=== PATIENT | male | born 1940 | race Caucasian/White ===

== ENCOUNTER → 2016-04-25 | Outpatient (CLI) | payer OTHER ==
--- NOTE | 2016-04-25 12:00 | EKG ---
[address] [address] Measurements Intervals [place] Rate: 89 P: 62 MA: 148 QRS: 137 QRSD: 95 T: 43 QT: 379 QTc: 426 Interpretive Statements SINUS RHYTHM WITH OCCASIONAL VENTRICULAR PREMATURE COMPLEXES LEFT ATRIAL ENLARGEMENT RIGHT AXIX DEVIATION PATTERN CONSISTENT WITH PULMONARY DISEASE POSSIBLE RIGHT VENTRICULAR HYPERTROPHY No previous ECG available for comparison Electronically Signed On 04-25-16 12:24:37 [facility] by Bebo Schumacher [email or web address]
--- NOTE | 2016-04-25 12:08 | DI ---
PA /LATERAL CHEST X-RAY, 04/25/2016 11:39 AM : Clinical History: Bronchitis. COPD. Previous Exam: 11/24/2014. There is no acute soft tissue or bony abnormality. The patient is status post CABG. There is cardiome lino with CHF. There is no acute infiltrate or effusion. There is blunting of the left costophrenic a ngle probably secondary to scarring. There are no pulmonary nodules. Readin. Cardiomegaly with CHF. 2. There is no acute infiltrate or effusion. There is chronic blunting of the left costophrenic angl e.
[2016-04-25 12:09] LABS: BASOPHILS # (AUTO) 0.02 10*3/UL; BASOPHILS % (AUTO) 0.2 % (0-1); EOSINOPHILS % (AUTO) 8.4 % (0-8); HEMATOCRIT 51.5 % (42.0-52.0); HEMOGLOBIN 16.4 g/dL (14.0-18.0); IMM GRAN % (AUTO) 0 % (0-5); IMM GRAN# (AUTO) 0 10*3/UL; LYMPHOCYTES # (AUTO) 1.37 10*3/uL; LYMPHOCYTES % (AUTO) 15.9 % (10-50); MEAN CORPUSCULAR HEMOGLOBIN 28.1 PG (27-31); MEAN CORPUSCULAR HGB CONC 31.8 g/dL (33-37); MEAN PLATELET VOLUME 10.4 FL (7.4-12.2); MONOCYTES # (AUTO) 0.91 10*3/UL (0.3-0.8); MONOCYTES % (AUTO) 10.6 % (5-15); NEUTROPHILS % (AUTO) 64.9 % (50-80); RDW COEFFICIENT OF VARIATION 17.9 % (11.5-14.5); RED BLOOD COUNT 5.83 10^6/uL (4.70-6.10); WHITE BLOOD COUNT 8.62 10^3/uL (4.8-10.8)
[2016-04-25 12:28] LABS: PLATELET MORPHOLOGY COMMENT NORMAL MORPHOLOGY (NORM)
[2016-04-25 12:30] LABS: BILIRUBIN,TOTAL 1.4 mg/dL (0.3-1.2); BUN/CREATININE RATIO 26.66 (6-20); CALCIUM 8.6 mg/dL (8.7-10.7); CREATININE 0.9 mg/dL (0.70-1.50); LDL CHOLESTEROL,CALCULATED 28.6 mg/dL; TOTAL PROTEIN 6.6 g/dL (6.1-8.0)
== END ==
LOC: EKG 11:24
PROVIDERS: ATTEND Obstetrics & Gynecology Gynecology
DX: J40 Bronchitis, not specified as acute or chronic (principal); J44.9 Chronic obstructive pulmonary disease, unspecified; I49.9 Cardiac arrhythmia, unspecified; I50.9 Heart failure, unspecified; I51.7 Cardiomegaly; Z12.5 Encounter for screening for malignant neoplasm of prostate
CPT/HCPCS: 36415; 71020; 80053; 80061; 85025; 93005; 93010; G0103

== ENCOUNTER → 2016-10-15 | Outpatient (CLI) | payer OTHER ==
[2016-10-15 08:59] LABS: HEMATOCRIT 52.9 % (42.0-52.0); HEMOGLOBIN 17.9 g/dL (14.0-18.0); MEAN CORPUSCULAR HEMOGLOBIN 30.3 PG (27-31); MEAN CORPUSCULAR HGB CONC 33.8 g/dL (33-37); MEAN CORPUSCULAR VOLUME 89.5 FL (80-90); MEAN PLATELET VOLUME 10.6 FL (7.4-12.2); RED BLOOD COUNT 5.91 10^6/uL (4.70-6.10)
[2016-10-15 09:29] LABS: CALCIUM 9.3 mg/dL (8.7-10.7); CHOL/HDL RATIO 3.1 RATIO (0-4.0); LDL CHOLESTEROL,CALCULATED 64.4 mg/dL; SERUM ALBUMIN 4.3 g/dL (3.5-4.8)
== END ==
LOC: LAB 07:55
PROVIDERS: ATTEND Obstetrics & Gynecology Gynecology
DX: I50.9 Heart failure, unspecified (principal); I25.10 Atherosclerotic heart disease of native coronary artery without angina pectoris; M54.5 Low back pain; L40.9 Psoriasis, unspecified; Z12.5 Encounter for screening for malignant neoplasm of prostate
CPT/HCPCS: 36415; 80053; 80061; 84443; 85027; G0103; 84153

== ENCOUNTER 2017-04-29 17:57 | Inpatient (IN) ==
[2017-04-29] MEDS ORDERED: IPRATROPIUM/ALBUTEROL SULFATE 3 ML NEB NEB ONE (18:27)
[2017-04-29] MEDS ORDERED: Sodium Chloride 0.9% 1,000 ML ONE (18:37)
[2017-04-29 19:02] LABS: VENOUS PH 7.39 (7.32-7.42)
[2017-04-29] MEDS ORDERED: ACETAMINOPHEN 500 MG TABLET PO ONE (19:25)
--- NOTE | 2017-04-29 20:33 | DI ---
CT CTA Chest Non-Coronary O,04/29/2017 7:10 PM: Clinical History: Dyspnea and elevated d-dimer. Previous Exam: None at this facility. Findings: Multiple helically acquired CT images are obtained through the chest following intravenous administra tion of contrast, and demonstrate multiple coronary artery calcifications. There is a hiatal hernia. 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 A few small lymph nodes are noted which are to small to characterize. There is subsegmental atelectasis in both lung bases worse on the left than the right. Calcified gran ulomas are noted. There are right lateral rib fractures involving the fifth, sixth, seventh and eighth ribs. Impression: 1. No evidence of pulmonary embolism. 2. Cardiomegaly and coronary artery disease. 3. Hiatal hernia. 4. Airspace disease within the lung bases worse on the left and right. This could represent an early pneumonia.
[2017-04-29] MEDS ORDERED: cefTRIAXone Inj 1 GM in Sodium Chloride 0.9% 100 ML IV ONE (20:47)
--- NOTE | 2017-04-29 21:20 | PDOC ---
HPI - History of Present Illness Date of Service: 04/29/17 Time of Service: 22:00 Chief Complaint: Cough, weakness of 2 days' duration History of Present Illness: This is a 77 years old male with medical history significant for history of coronary artery disease with previous bypass about 4-5 years ago, hypertension, psoriasis and hypercholesterolemia who presented to the urgent care clinic with a history of cough that started Saturday sounded like more dry cough. He is denying shortness of breath. He said he just felt weak and did not do much on Saturday. His appetite is decreased. He did not eat much. He somewhat poor historian. He denied chest pain. He came into the urgent care clinic had test they suspected pneumonia and he was sent to the ER. Evaluation in the ER suggested early pneumonia on the CT. In addition his white count was elevated. A blood culture was taken and he was started on antibiotic and was admitted. He said he feels better compared to when he came in. His sats also when he came in were low in the 77 he was put on 5 L of oxygen. He said he is not on oxygen at home. Past Medical History Medical History: 1. History of crying artery disease with previous bypass for 5 years ago. 2. History of congestive heart failure unknown type. 3. Psoriasis. 4. History of gout Surgical History: 1. Bypass surgery for 5 years ago Family History: Reviewed an Not Pertinent Past Social History: Doesn't smoke, doesn't drink no drugs. [place] himself. Tobacco Use: Never Smoker In the Past 12 Months, Have Used or Abuse Any of the Following Substance: None Alcohol Use: None Medication / Allergies Home Medications: Home Medications 3 Medication Instructions Recorded Confirmed Type Cholecalciferol (Vitamin D3) 1 cap PO PRN PRN cap 11/19/14 04/29/17 History [Vitamin D3] Esomeprazole Magnesium [Nexium] 20 mg PO DAILY cap 11/19/14 04/29/17 History Pitavastatin Calcium [Livalo] 4 mg PO DAILY tab 11/19/14 04/29/17 History RX: Allopurinol 1 tab PO DAILY tab 11/19/14 04/29/17 History RX: Amiodarone HCl 200 mg PO DAILY tab 11/19/14 04/29/17 History RX: Aspirin 81 mg PO DAILY tab 11/19/14 04/29/17 History RX: Carvedilol 1 tab PO BID tab 11/19/14 04/29/17 History RX: Furosemide 2 tab PO DAILY tab 11/19/14 04/29/17 History RX: Niacin 500 mg PO DAILY cap 11/19/14 04/29/17 History RX: Potassium Chloride 1 tab PO DAILY tab 11/19/14 04/29/17 History Spironolactone [Aldactone Tab] 1 tab PO BID tab 11/19/14 04/29/17 History Allergies/Adverse Reactions: Allergies 3 Allergy/AdvReac Type Severity Reaction Status Date / Time No Known Allergies Allergy Verified 04/29/17 17:59 Review of Systems - Review of Systems All Systems: Reviewed & No Additional Complaints Except as Stated Exam - General General Appearance: No Acute Distress, Cooperative, Obese - Head Head Exam: Normal Inspection, Atraumatic - Eye Eye Exam: POSITIVE: Normal Appearance - ENT ENT Exam: POSITIVE: Normal Exam - Neck Neck Exam: Normal Inspection - Respiratory Additional Respiratory Exam Details: Decreased air entry with crackles with occasional wheeze at the bases. - Cardiovascular Cardiovascular Exam: POSITIVE: RRR - GI/Abdominal GI/Abdominal Exam: POSITIVE: Normal Bowel Sounds, Non Tender, Non Distended, Soft, No Organomegaly - Rectal Rectal Exam: POSITIVE: Deferred - External Exam: POSITIVE: Deferred - Extremities Extremities Exam: POSITIVE: Normal Inspection - Back Additional Back Exam Details: Sizes noted on his back. Throat is also noted on his chest. - Psychiatric Psychiatric Exam: POSITIVE: Normal Affect Results - Labs Additional Lab Results: White count is 18.25, platelet 179, hemoglobin 17.8, neutrophils 82.5%, chemistry were normal except bilirubin of 1.9, blood glucose 123, troponin was 0.035, BNP was 2700, CRP was 4.1. D-dimer was 0.6.3 - EKG Data -: EKG Interpreted by Me Rate: Tachycardia EKG Shows Normal: Sinus Rhythm - EKG Data Additional EKG Details: EKG showed sinus tachycardia with incomplete right bundle - Imaging Status: Report Reviewed by Me (CT chest 1. No evidence of pulmonary embolism. 2. Cardiomegaly and coronary artery disease. 3. Hiatal hernia. 4. Airspace disease within the lung bases worse on the left and right. This could represent an early pneumonia. Chest X ray Cardiomegaly and increased interstitial markings most consistent with congestive heart failure unchanged from the prior exam.) Assessment and Plan - Patient Problems (1) Pneumonia Current Visit: Yes Status: Acute Comment: With his elevated white count and the low-grade fever that he had down in the ER will treat him as pneumonia. He was giving antibiotics will continue with Rocephin and zithromax. Continue with breathing treatment. Code(s): J18.9 - Pneumonia, unspecified organism (2) Hypertension Current Visit: Yes Status: Acute Comment: We'll continue with his previous medications. Code(s): I10 - Essential (primary) hypertension (3) History of congestive heart failure Current Visit: Yes Status: Acute Comment: His BNP is elevated I think his symptoms are more secondary to pneumonia. I do think that he needs some fluid will give some fluid and will be cautious with it will repeat his labs in a.m. We'll think about restarting his Lasix tomorrow or the day after. Does not look like he takes his Lasix regularly. Code(s): Z86.79 - Personal history of other diseases of the circulatory system (4) History of gout Current Visit: Yes Status: Acute Comment: Continue allopurinol Code(s): Z87.39 - Personal history of other diseases of the musculoskeletal system and connective tissue
[2017-04-29] MEDS ORDERED: LIDOCAINE W/ SODIUM BICARB 0.5 ML SYR SUBD PRN (22:08)
[2017-04-29] MEDS ORDERED: Sodium Chloride 0.9% 1,000 ML IV SCH (22:30)
--- NOTE | 2017-04-29 22:37 | PDOC ---
General Adult HPI - General Chief Complaint: Respiratory Complaint Stated Complaint: COUGH AND FEVER Date Seen by Provider: 04/29/17 Time Seen by Provider: 16:15 Source: POSITIVE: Patient Exam Limitations: POSITIVE: No limitations Nurse's Notes Reviewed & Considered: Yes - History of Present Illness Initial Comment: The patient is a 77-year-old male. He reports a 2-3 day history of cough and shortness of breath and fever. Patient was initially seen at the medical office building where he was noted to have an oxygen saturation of 74% on room air; he is not on oxygen at home. He had a fever of 100.1. White blood cell count was 18,250 with 82% neutrophils. Complete metabolic panel was normal CRP 4.1, BNP 27 and troponin was .035. Chest x-ray done in the clinic was reported by radiologist to show some interstitial infiltrates compatible with congestive heart failure. Patient was referred to the emergency room for further evaluation. Patient denies any chest pain. He had as have a cough productive of mucoid "phlegm". Have you received a tetanus shot in the past 10 years?: Unknown Body Location Affected: REPORTS: Chest Timing: REPORTS: Constant, Getting Worse Duration: >24 hours (2-3 days) Severity: Moderate Quality: REPORTS: Other (Patient denies any chest or) Context: DENIES: None, Sitting, Standing, Activity, Emotional stress, Coughing, Recent Trauma, Recent Surgery, Sleep, Rest, Lifting, Turning, Bending, Fall, Near Fall, Other Modifying Factors: improves with: Coughing Similar Symptoms Previously: No Recent Care Received: REPORTS: Recently Seen, Treated by MD (Seen earlier today in the clinic.) Any Prior Injuries Related to Current Complaint?: No - Patient Home Medications Home Medications: Home Medications Allopurinol 1 tab PO DAILY tab 11/19/14 Amiodarone HCl 200 mg PO DAILY tab 11/19/14 Aspirin 81 mg PO DAILY tab 11/19/14 Carvedilol 1 tab PO BID tab 11/19/14 Cholecalciferol (Vitamin D3) [Vitamin D3] 1 cap PO PRN PRN cap 11/19/14 Esomeprazole Magnesium [Nexium] 20 mg PO DAILY cap 11/19/14 Furosemide 2 tab PO DAILY tab 11/19/14 Niacin 500 mg PO DAILY cap 11/19/14 Pitavastatin Calcium [Livalo] 4 mg PO DAILY tab 11/19/14 Potassium Chloride 1 tab PO DAILY tab 11/19/14 Spironolactone [Aldactone Tab] 1 tab PO BID tab 11/19/14 - Patient Allergies Allergies/Adverse Reactions: Allergies 3 Allergy/AdvReac Type Severity Reaction Status Date / Time No Known Allergies Allergy Verified 04/29/17 17:59 Past Medical History - heen HEENT History: Denies History Cardiovascular History: Previous GA, Other (please comment) Additional Cardiovasular History: STENTS X 5 5 YEARS AGO Respiratory History: Denies History Gastrointestinal History: Denies History Genitourinary History: Denies History Endocrine History: Denies History Musculoskeletal History: Back Pain Neurological History: Denies History Blood Disorders: Denies History Psychiatric History: Denies History History of Sexually Transmitted Diseases: No Male Reproductive History: Denies History Cancer History: Denies History In Past Year Been Physically Harmed or Verbally Threatened: No History of MDRO: Yes Type of MDRO: MRSA History of Other Communicable Diseases: No Tobacco Use: Never Smoker In the Past 12 Months, Have Used or Abuse Any Substance: None Previous Surgical History: Yes Type / Date of Surgery: LUMBAR FUSION X 2 3 YEARS AGO. CARDIAC STENTS X 5 Significant Family History: No pertinent family hx Past Medical History Reviewed: Reviewed - No Changes ROS - Limitations ROS Limitations: No Limitations Constitution: REPORTS: Chills, Fever Cardiovascular: REPORTS: Denies Cardiac Symptoms Respiratory: REPORTS: Cough Productive, Shortness Of Breath Neurological: REPORTS: Denies Neuro Symptoms Gastrointestinal: REPORTS: Denies GI Symptoms Endocrine: REPORTS: Denies Symptoms Musculoskeletal: REPORTS: Denies MS Symptoms Genitourinary: REPORTS: Denies Symptoms Eyes: REPORTS: Denies Symptoms ENT: REPORTS: Denies Symptoms Skin: REPORTS: Denies Skin Symptoms Lympathic: REPORTS: Denies Lympathic Symptoms Immunologic: POSITIVE: Denies Symptoms Psychiatric: POSITIVE: Denies Psych Symptoms General Adult Exam - General Appearance General Appearance: POSITIVE: Alert, Cooperative, No Acute Distress, No Evidence of Trauma - HEENT HEENT: POSITIVE: Head Inspection Nml, Eyes Inspection Nml, Ears Inspection Nml, Nose Inspection Nml, Oral/Dental Inspect. Nml, Pharynx Inspect. Nml, PERRL, EOMI - Pupils Pupil Size: 3 mm: Bilateral (PERRLA) - Neck Neck: POSITIVE: Normal Inspection, Thyroid Normal - Respiratory Respiratory: POSITIVE: Rales, Rhonchi (Rales and rhonchi in both lower lungs. Right greater than left). NEGATIVE: Breath Sounds Normal - Cardiovascular Cardiovascular: POSITIVE: Regular Rate & Rhythm, No Murmur, No Gallop, PMI Normal, Tachycardia (Sinus tachycardia of 128) Peripheral Pulses: Radial (R): 2+, Radial (L): 2+ - Abdomen Abdomen: Soft: (All Quadrants), Normal Bowel Sounds: (All Quadrants), Denies Tenderness: (All Quadrants), No Splenomegaly: (All Quadrants), No Hepatomegaly: (All Quadrants), No Guarding: (All Quadrants), No Rebound: (All Quadrants), No Palpable Pulse: (All Quadrants), No Palpabale Mass: (All Quadrants), No Distention: (All Quadrants), No Rigidity: (All Quadrants) - Back Back: POSITIVE: Normal Inspection - Skin Skin: POSITIVE: Normal Color, Warm, Dry, No Rash - Extremities Extremity: Non-Tender: (All Extremities), Normal ROM: (All Extremities), Normal Inspection: (All Extremities) - Neurological / Psychological Neurological: POSITIVE: Affect Apporpriate, Oriented X3, plastic installer Normal As Tested, Motor Normal, Sensation Normal General Adult Progress - Results Reviewed by me Xrays/CTs/US Reviewed by me: Yes Discussed with Radiologist: Yes Radiology Findings: CTA chest shows airspace disease in both lung bases compatible with early pneumonia. Chest x-ray shows some interstitial infiltrates, read by radiologist as being compatible with congestive heart failure Lab Results Reviewed by Me: Yes (see above; d-dimer mildly elevated. Blood cultures drawn.) EKG Interpreted/Reviewed By Me:: Yes (sinus tachycardia 105; otherwise normal) EKG Interpretation:: POSITIVE: Normal Intervals, Normal [place], Normal QRS, Normal ST/T. NEGATIVE: Normal Sinus Rhythm (Sinus tachycardia), Normal Rate ( Sinus tachycardia) - Patient's Progress Pain Medication Addressed: POSITIVE: Not Applicable School/Work Release Addressed: POSITIVE: Not Applicable Re-Examine Time: 19:35 Re-Examine Comment: 1 g of Rocephin IV and 500 mg of Zithromax IV ordered after blood cultures obtained. Oxygen saturation was maintained around 93% on 5 L of oxygen by nasal cannula. Influenza test negative. Status: POSITIVE: Improved (Patient feels better with oxygen supplementation. Patient admitted by Dr. Puentes for further evaluation and treatment.), Re- Examined Antibiotics Given: Yes (Rocephin 1 g IV and Zithromax 500 mg IV) Quality Measure Initiative: CAP: POSITIVE: SaO2, Antibiotic(s), BC, CXR or CT - Consult Consult (If Yes, Name of Consulting MD & Time Called): Yes (Dr. Puentes, [id number], hospitalist) Consulting MD will see pt:: [facility] Admit Counseled: POSITIVE: Patient, Family, RE: Lab Results, RE: Radiology Results, RE : DX, RE: Need for F/U Patient Care Time - Estimated PCT Patient Care Time (In Minutes): 60 Vital Signs - Recent Vital Signs Vital Signs: Vital Signs (Last 8 hours) Temp Pulse Pulse Resp BP BP Pulse Ox 04/29/17 22:25 92 04/29/17 21:47 98.5 F 90 28 H 108/78 91 04/29/17 19:33 100.3 F H 04/29/17 18:52 107 H 24 94 04/29/17 18:51 105 H 22 86 04/29/17 18:10 100.1 F H 128 H 26 H 146/108 74 - VS Reviewed Vital Signs Reviewed: Yes Discharge Clinical Impression: Pneumonia, Congestive heart failure Discharge Disposition: Admit to Inpatient Condition: Good Date Decision to Admit to Inpatient: 04/29/17 Time Decision to Admit to Inpatient: 20:00
[2017-04-29] MEDS ORDERED: GUAIFENESIN/DM 5 ML UD CUP PO PRN (23:11)
[2017-04-30 05:00] LABS: BASOPHILS # (AUTO) 0.01 10*3/UL; BASOPHILS % (AUTO) 0.1 % (0-1); EOSINOPHILS # (AUTO) 0.01 10*3/UL; EOSINOPHILS % (AUTO) 0.1 % (0-8); Hematocrit [HCT] 48.8 % (42.0-52.0); Hemoglobin [HGB] 16.4 g/dL (14.0-18.0); LYMPHOCYTES # (AUTO) 0.96 10*3/uL; MEAN CORPUSCULAR HEMOGLOBIN 31.1 PG (27-31); MEAN CORPUSCULAR HGB CONC 33.6 g/dL (33-37); MEAN CORPUSCULAR VOLUME 92.6 FL (80-90); MONOCYTES # (AUTO) 1.31 10*3/UL (0.3-0.8); MONOCYTES % (AUTO) 7.4 % (5-15); NEUTROPHILS # (AUTO) 15.35 10*3/UL; NEUTROPHILS % (AUTO) 86.8 % (50-80); RED BLOOD COUNT 5.27 10^6/uL (4.70-6.10)
[2017-04-30 05:09] LABS: BLOOD UREA NITROGEN 17 mg/dL (7-22); BUN/CREATININE RATIO 24.28 (6-20)
[2017-04-30 05:15] LABS: PLATELET MORPHOLOGY COMMENT NORMAL MORPHOLOGY (NORM); RBC MORPHOLOGY COMMENT NORMAL MORPHOLOGY (NORM); WBC MORPHOLOGY COMMENT NORMAL MORPHOLOGY (NORM)
[2017-04-30] MEDS: LEVALBUTEROL HCL 0.63 MG/3 ML NEB PRN (07:03)
--- NOTE | 2017-04-30 08:06 | PDOC(PROG) ---
Date and Time of Service: 04/30/2017 8:06 AM Interval History: Subjective He said he feels somewhat better compared to last night. The cough seems to be less but still there. He is denying shortness of breath. He still on oxygen though. He said he did manage to sleep. Objective : Data - Labs CBC and BMP: 04/30/17 04:35 04/30/17 04:35 Objective : Exam - General General Appearance: No Acute Distress, Cooperative, Obese - Head Head Exam: Normal Inspection, Atraumatic - Eye Eye Exam: Normal Appearance - ENT ENT Exam: Normal Exam - Neck Neck Exam: Normal Inspection - Respiratory Additional Respiratory Exam Details: Decreased air entry with crackles more on the right side compared to the left. Some occasional wheeze here. - Cardiovascular Cardiovascular Exam: RRR - GI/Abdominal GI/Abdominal Exam: Normal Bowel Sounds, Non Tender, Non Distended, Soft, No Organomegaly - Rectal Rectal Exam: Deferred - External Exam: Deferred Exam: Deferred - Extremities Extremities Exam: Normal Inspection - Back Additional Back Exam Details: Psoriasis noted on his back and his chest. Also on different part of the arm and legs. - Neurological Neurological Exam: Alert, Oriented x 3, CN II-XII Intact, Speech Intact / Clear , Moves All Extremities Equally - Psychiatric Psychiatric Exam: Normal Affect Assessment and Plan - Patient Problems (1) Pneumonia Current Visit: Yes Status: Acute Comment: I think will continue antibiotics. We'll DC his IV fluid. Continue bronchodilator. We'll hold off on steroid for now. Code(s): J18.9 - Pneumonia, unspecified organism (2) Hypertension Current Visit: Yes Status: Acute Comment: Same med. Will double check his medications with the pharmacy. Code(s): I10 - Essential (primary) hypertension (3) History of congestive heart failure Current Visit: Yes Status: Acute Comment: Restart his Lasix tomorrow. Code(s): Z86.79 - Personal history of other diseases of the circulatory system (4) History of gout Current Visit: Yes Status: Acute Comment: Continue allopurinol. Code(s): Z87.39 - Personal history of other diseases of the musculoskeletal system and connective tissue (5) DVT prophylaxis Current Visit: Yes Status: Acute Comment: We'll start him on Lovenox
[2017-04-30] MEDS: ASPIRIN 81 MG (BABY) CHEWABLE TABLET PO SCH (08:08)
[2017-04-30] MEDS: ALLOPURINOL 300 MG TABLET PO SCH (08:08)
[2017-04-30] MEDS: CARVEDILOL 3.125 MG TABLET PO SCH ×2 (08:08→21:03)
[2017-04-30] MEDS ORDERED: FUROSEMIDE 40 MG TABLET PO SCH (08:30)
[2017-04-30] MEDS ORDERED: AMIODARONE 200 MG TABLET PO SCH (09:00)
[2017-04-30] MEDS ORDERED: Spironolactone Tab 25 MG TAB PO SCH (09:00)
[2017-04-30] MEDS: Esomeprazole DR 20mg Capsule PO SCH (09:33)
[2017-04-30] MEDS: ENOXAPARIN SODIUM 40 MG/0.4 ML SYRINGE SUBCUT SCH (09:33)
[2017-04-30] MEDS ORDERED: Vancomycin-PHA to Dose IV PRN (10:21)
[2017-04-30] MEDS ORDERED: cefTRIAXone Inj 1 GM in Sodium Chloride 0.9% 100 ML IV SCH ×2 (19:00→21:00)
[2017-04-30] MEDS ORDERED: CALCIUM CARBONATE 500 MG (TUMS) CHEWABLE TABLET PO PRN (19:58)
[2017-04-30] MEDS ORDERED: PITAVASTATIN CALCIUM 4 MG PO SCH (21:00)
[2017-04-30] MEDS: ATORVASTATIN 20 MG TABLET PO SCH (21:02)
[2017-05-01] MEDS ORDERED: diphenhydrAMINE 25 MG CAPSULE PO ONE ×2 (02:20→21:00)
[2017-05-01] MEDS: ACETAMINOPHEN 325 MG TABLET PO PRN ×4 (02:29→21:31)
[2017-05-01 04:57] LABS: BASOPHILS # (AUTO) 0.01 10*3/UL; BASOPHILS % (AUTO) 0.1 % (0-1); EOSINOPHILS # (AUTO) 0.04 10*3/UL; EOSINOPHILS % (AUTO) 0.3 % (0-8); Hematocrit [HCT] 48.1 % (42.0-52.0); Hemoglobin [HGB] 16.2 g/dL (14.0-18.0); LYMPHOCYTES # (AUTO) 0.91 10*3/uL; MEAN CORPUSCULAR HGB CONC 33.7 g/dL (33-37); MEAN PLATELET VOLUME 10.8 FL (7.4-12.2); MONOCYTES # (AUTO) 0.96 10*3/UL (0.3-0.8); MONOCYTES % (AUTO) 6.9 % (5-15); NEUTROPHILS # (AUTO) 11.89 10*3/UL; RED BLOOD COUNT 5.23 10^6/uL (4.70-6.10)
[2017-05-01 05:06] LABS: BLOOD UREA NITROGEN 19 mg/dL (7-22); BUN/CREATININE RATIO 27.14 (6-20)
[2017-05-01 05:16] LABS: PLATELET MORPHOLOGY COMMENT NORMAL MORPHOLOGY (NORM); RBC MORPHOLOGY COMMENT NORMAL MORPHOLOGY (NORM); WBC MORPHOLOGY COMMENT NORMAL MORPHOLOGY (NORM)
[2017-05-01] MEDS: FUROSEMIDE 40 MG TABLET PO SCH (07:55)
[2017-05-01] MEDS: ENOXAPARIN SODIUM 40 MG/0.4 ML SYRINGE SUBCUT SCH (09:17)
[2017-05-01] MEDS: ALLOPURINOL 300 MG TABLET PO SCH (09:17)
[2017-05-01] MEDS: ACIDOPHILUS/BULGARICUS CHEWABLE TABLET PO SCH ×3 (09:17→21:25)
[2017-05-01] MEDS: CARVEDILOL 3.125 MG TABLET PO SCH ×2 (09:18→21:25)
[2017-05-01] MEDS: Esomeprazole DR 20mg Capsule PO SCH (09:18)
[2017-05-01] MEDS: ASPIRIN 81 MG (BABY) CHEWABLE TABLET PO SCH (09:18)
[2017-05-01] MEDS: LEVALBUTEROL HCL 0.63 MG/3 ML NEB PRN (13:20)
--- NOTE | 2017-05-01 14:25 | PDOC(PROG) ---
Interval History: Patient is feeling a little weaker today cough is slightly improved Objective : Data - Labs CBC and BMP: 05/01/17 04:39 05/01/17 04:39 Objective : Exam - General General Appearance: Cooperative - Respiratory Respiratory Exam: Decreased Breath Sounds, Wheezes - Cardiovascular Cardiovascular Exam: RRR, No Murmur, No Clicks, No Gallops, No Rubs, PMI Non- Displaced - GI/Abdominal GI/Abdominal Exam: Normal Bowel Sounds, Non Tender, Non Distended, Soft, No Masses, No Hepatomegaly, No Splenomegaly, No Organomegaly - Integumentary Additional Integumentary Exam Details: Eczema-like picture Assessment and Plan - Patient Problems (1) Pneumonia Current Visit: Yes Status: Acute Code(s): J18.9 - Pneumonia, unspecified organism (2) Hypertension Current Visit: Yes Status: Acute Code(s): I10 - Essential (primary) hypertension (3) History of congestive heart failure Current Visit: Yes Status: Acute Code(s): Z86.79 - Personal history of other diseases of the circulatory system (4) History of gout Current Visit: Yes Status: Acute Code(s): Z87.39 - Personal history of other diseases of the musculoskeletal system and connective tissue (5) DVT prophylaxis Current Visit: Yes Status: Acute
[2017-05-01] MEDS ORDERED: cefTRIAXone Inj 2 GM in Sodium Chloride 0.9% 100 ML IV SCH (19:00)
[2017-05-01] MEDS ORDERED: FLUTICASONE PROPIONATE 16 GRAM (120 SPRAYS / BOTTLE) ENOS ONE (20:28)
[2017-05-01] MEDS: ATORVASTATIN 20 MG TABLET PO SCH (21:26)
[2017-05-02 05:10] LABS: BASOPHILS # (AUTO) 0.01 10*3/UL; BASOPHILS % (AUTO) 0.1 % (0-1); EOSINOPHILS % (AUTO) 0.6 % (0-8); Hematocrit [HCT] 49.4 % (42.0-52.0); Hemoglobin [HGB] 16.5 g/dL (14.0-18.0); LYMPHOCYTES # (AUTO) 1.02 10*3/uL; MEAN CORPUSCULAR HEMOGLOBIN 30.7 PG (27-31); MEAN CORPUSCULAR HGB CONC 33.4 g/dL (33-37); MEAN PLATELET VOLUME 11.1 FL (7.4-12.2); MONOCYTES # (AUTO) 1.29 10*3/UL (0.3-0.8); MONOCYTES % (AUTO) 7.4 % (5-15); NEUTROPHILS # (AUTO) 14.88 10*3/UL; NEUTROPHILS % (AUTO) 85.8 % (50-80); RED BLOOD COUNT 5.37 10^6/uL (4.70-6.10)
[2017-05-02 05:12] LABS: BLOOD UREA NITROGEN 13 mg/dL (7-22); BUN/CREATININE RATIO 18.57 (6-20); SERUM ALBUMIN 3.7 g/dL (3.5-4.8)
[2017-05-02 05:42] LABS: PLATELET MORPHOLOGY COMMENT NORMAL MORPHOLOGY (NORM); RBC MORPHOLOGY COMMENT NORMAL MORPHOLOGY (NORM); WBC MORPHOLOGY COMMENT NORMAL MORPHOLOGY (NORM)
[2017-05-02] MEDS: LEVALBUTEROL HCL 0.63 MG/3 ML NEB PRN ×2 (06:48→13:25)
[2017-05-02] MEDS: FUROSEMIDE 40 MG TABLET PO SCH (07:22)
[2017-05-02] MEDS: ENOXAPARIN SODIUM 40 MG/0.4 ML SYRINGE SUBCUT SCH (08:17)
[2017-05-02] MEDS: ACIDOPHILUS/BULGARICUS CHEWABLE TABLET PO SCH ×3 (08:17→20:56)
[2017-05-02] MEDS: ASPIRIN 81 MG (BABY) CHEWABLE TABLET PO SCH (08:17)
[2017-05-02] MEDS: CARVEDILOL 3.125 MG TABLET PO SCH ×2 (08:17→20:56)
[2017-05-02] MEDS: ALLOPURINOL 300 MG TABLET PO SCH (08:17)
[2017-05-02] MEDS: cefTRIAXone Inj 2 GM in Sodium Chloride 0.9% 100 ML IV SCH (09:25)
[2017-05-02] MEDS: NORMAL SALINE 10 ML SYRINGE FLUSH IVP PRN (09:26)
[2017-05-02] MEDS ORDERED: FLUTICASONE PROPIONATE 16 GRAM (120 SPRAYS / BOTTLE) ENOS PRN (09:45)
--- NOTE | 2017-05-02 10:53 | DCSUMMARY ---
Hospitalization Summary Discharge Date: 05/03/17 Primary Diagnosis:: strep pneumonia Secondary Diagnosis:: CHF Hospital Course: Final Discharge Diagnosis: Current Visit Problems Problem Status Onset Code Pneumonia Acute J18.9 Hypertension Acute I10 History of congestive heart failure Acute Z86.79 History of gout Acute Z87.39 Pneumonia Acute J18.9 Congestive heart failure Acute I50.9 DVT prophylaxis Acute Bacteremia Diagnostic Data, Laboratory Data, and Procedures of Signifigance: Abnormal Lab Results (Last 24 Hours) Range/Units 05/02/17 05/02/17 04:04 04:04 WBC (4.8-10.8) 10^3/uL 17.33 H MCV (80-90) FL 92.0 H RDW Coeff of Brendan (11.5-14.5) % 14.6 H Neut % (Auto) (50-80) % 85.8 H Lymph % (Auto) (10-50) % 5.9 L [place] # (Auto) (0.3-0.8) 10*3/UL 1.29 H Potassium (3.8-5.2) meq/L 3.5 L Chloride (98-112) meq/L 97 L Total Bilirubin (0.3-1.2) mg/dL 1.5 H Abnormal Lab Results (Last 24 Hours) Range/Units 05/03/17 05/03/17 05/03/17 04:35 04:35 04:35 WBC (4.8-10.8) 10^3/uL 15.65 H MCV (80-90) FL 91.7 H MCH (27-31) PG 31.1 H Potassium (3.8-5.2) meq/L 3.4 L Chloride (98-112) meq/L 97 L Total Bilirubin (0.3-1.2) mg/dL 1.4 H NT-Pro-B Natriuret Pep (0-450) PG/ML 1210 H Total Protein (6.1-8.0) g/dL 5.4 L Albumin (3.5-4.8) g/dL 3.0 L Globulin (2.50-4.10) g/dL 2.4 L Albumin/Globulin Ratio (1.3-2.0) mg/g 1.20 L History and Physical pertinent to Admission: Past Medical History Medical History: 1. History of crying artery disease with previous bypass for 5 years ago. 2. History of congestive heart failure unknown type. 3. Psoriasis. 4. History of gout Surgical History: 1. Bypass surgery for 5 years ago Family History: Reviewed an Not Pertinent Past Social History: Doesn't smoke, doesn't drink no drugs. Lives in a ranch. By himself. Tobacco Use: Never Smoker In the Past 12 Months, Have Used or Abuse Any of the Following Substance: None Course of Hospitalization: Is a very nice 77-year-old gentleman with past medical history significant for coronary artery disease had bypass 4-5 years ago, hypertension, psoriasis and elevated cholesterol presented to the emergency room with the shortness of breath and cough CT chest revealed pneumonia with elevated white count was also hypoxic. The patient is being treated with IV antibiotics one blood culture positive for gram-positive cocci most likely group C strep. Patient is improved in regards to his stamina and lung status still desats to 84 on room air. PT did walk with the patient did fairly well. I discussed the case with infectious disease patient can be discharged home with 7 days of IV ceftriaxone 2 g with daily infusions. Patient is going home no matter what we recommend he said he will walk out of here and wants to go to his house. I told him that he will need oxygen and daily infusions and this is the best I can arrange for him since he is going home no matter what patient was examined with nursing who was present for this conversation. The nurse's name [email or web address]. Patient patient has a lot of help at home including a payroll accounting specialist and multiple hired men to help him. He also has plenty of people to take him in for his infusions. He feels much better today even better than yesterday and is very happy to be being discharged home he is not short of breath he has more energy and and ordered a full breakfast On the date of discharge, the patient was examined: Gen.: No acute distress, alert, nontoxic Heart: Regular rate and rhythm, no murmurs, clicks, gallops, or rubs Lungs: Clear to auscultation bilaterally, breathing is nonlabored Abdomen/GI: Normal tones on auscultation, soft, nontender, nondistended Musculoskeletal/extremities: No clubbing, cyanosis, or edema Vitals reviewed and are listed below Vital Signs (24 hrs) Temp Pulse Pulse Pulse Pulse Resp BP 05/03/17 11:00 05/03/17 07:58 97.7 F 87 22 106/66 05/03/17 07:00 78 18 05/03/17 06:27 76 18 05/03/17 06:26 76 18 05/03/17 04:41 97.2 F 77 20 125/71 05/03/17 04:04 05/03/17 03:00 05/03/17 01:00 98.9 F 81 20 05/02/17 23:00 05/02/17 21:00 99.6 F 88 20 136/89 05/02/17 18:50 80 78 85 22 05/02/17 16:21 98.6 F 85 22 126/77 05/02/17 15:31 05/02/17 13:31 100.4 F H 93 18 121/79 05/02/17 13:25 84 18 Pulse Ox 05/03/17 11:00 90 05/03/17 07:58 93 05/03/17 07:00 92 05/03/17 06:27 05/03/17 06:26 92 05/03/17 04:41 93 05/03/17 04:04 97 05/03/17 03:00 94 05/03/17 01:00 95 05/02/17 23:00 98 05/02/17 21:00 90 05/02/17 18:50 96 05/02/17 16:21 93 05/02/17 15:31 91 05/02/17 13:31 91 05/02/17 13:25 93 Assessment and Plan: 1. As per discharge assessments above 2. Disposition: Home with IV infusions 3. Condition on discharge, stable and improved. 4. Diet: regular diet 5. Activities: resume normal activities 6. Follow-Up: 1. PCP 2. Dr. Mcintyre he will make his own appointment 7. Medications at the Time of Discharge: Home Medications 3 Medication Instructions Recorded Confirmed Type Allopurinol 1 tab PO DAILY tab 11/19/14 04/29/17 History Amiodarone HCl 200 mg PO DAILY tab 11/19/14 04/29/17 History Aspirin 81 mg PO DAILY tab 11/19/14 04/29/17 History Carvedilol 1 tab PO BID tab 11/19/14 04/29/17 History Cholecalciferol (Vitamin D3) 1 cap PO PRN PRN cap 11/19/14 04/29/17 History Vitamin D3 Furosemide 2 tab PO DAILY tab 11/19/14 04/29/17 History Potassium Chloride 1 tab PO DAILY tab 11/19/14 04/29/17 History Spironolactone Aldactone 1 tab PO BID tab 11/19/14 04/29/17 History Albuterol PROVENTIL HFA 1 - 2 inh BUCCAL .Q4-6H PRN #1 05/02/17 Rx inhaler Fluticasone Nasal [place] 0.05% 2 sprays SIMON BID PRN bottle 05/02/17 Rx Flonase Nasal [place] 0.05% cefTRIAXone Inj Rocephin Inj 2 gm IV Q24H 7 Days #7 vial 05/02/17 Rx 8. Time, care, counseling and coordination of care for this discharge is greater than 30 minutes. Exam - Vitals Vital Signs: Vital Signs Temperature 98.2 F Temperature Source Temporal Artery Scan Pulse Rate [Apical] 80 Pulse Rate [Pulse Oximeter] 88 Pulse Rate 88 Respiratory Rate 18 Blood Pressure [Left Arm] 148/92 Blood Pressure 108/78 Pulse Ox 91 Oxygen Flow Rate 3 Oxygen Delivery Method Nasal Cannula Height 5 ft 8 in Weight 210 lb 9.6 oz Patient Problems - Patient Problem List (1) Pneumonia Current Visit: Yes Status: Acute Code(s): J18.9 - Pneumonia, unspecified organism Category: Medical (2) Hypertension Current Visit: Yes Status: Acute Code(s): I10 - Essential (primary) hypertension Category: Medical (3) History of congestive heart failure Current Visit: Yes Status: Acute Code(s): Z86.79 - Personal history of other diseases of the circulatory system Category: Medical (4) History of gout Current Visit: Yes Status: Acute Code(s): Z87.39 - Personal history of other diseases of the musculoskeletal system and connective tissue Category: Medical (5) DVT prophylaxis Current Visit: Yes Status: Acute Category: Medical
--- NOTE | 2017-05-02 13:32 | PDOC(PROG) ---
Interval History: Patient is doing better today at first he wanted to go home no matter what then I did talk to him a little bit more about his white count decided to stay another day hopefully will stay a few more until he is totally better but overall there is improvement Objective : Data - Labs CBC and BMP: 05/02/17 04:04 05/02/17 04:04 Objective : Exam - General General Appearance: No Acute Distress - Respiratory Respiratory Exam: Decreased Breath Sounds, Wheezes - Cardiovascular Cardiovascular Exam: RRR, No Murmur, No Clicks, No Gallops, No Rubs, PMI Non- Displaced - GI/Abdominal GI/Abdominal Exam: Normal Bowel Sounds, Non Tender, Non Distended, Soft, No Masses, No Hepatomegaly, No Splenomegaly, No Organomegaly - Extremities Extremities Exam: No Clubbing Present, No Edema Present Assessment and Plan - Patient Problems (1) Pneumonia Current Visit: Yes Status: Acute Comment: Continue IV antibiotics positive blood cultures. Patient is requiring oxygen desats to 84% on room air as well as ambulation. Respiratory therapy as tested the patient Code(s): J18.9 - Pneumonia, unspecified organism (2) Hypertension Current Visit: Yes Status: Acute Comment: Stable Code(s): I10 - Essential (primary) hypertension (3) History of congestive heart failure Current Visit: Yes Status: Acute Comment: Review of present time Code(s): Z86.79 - Personal history of other diseases of the circulatory system (4) History of gout Current Visit: Yes Status: Acute Comment: Stable Code(s): Z87.39 - Personal history of other diseases of the musculoskeletal system and connective tissue (5) DVT prophylaxis Current Visit: Yes Status: Acute
--- NOTE | 2017-05-02 16:18 | PTI REPORT ---
Thank you for the referral of Camilo Modi. He was seen on 05/02/17 for an inpatient evaluation secondary to weakness. SUBJECTIVE: The patient is a 77-year-old male who states that he started to feel ill at the end of last week and finally Saturday he came to the hospital where he was then diagnosed with pneumonia. The patient states that he is doing much better today and he is planning on leaving the hospital today no matter what as he runs a ranch outside of town. The patient's ranch that he has is outside of [place] where he states that he lives alone but is able to perform all ADLs and work activities independently. He states that he does have some assistance out at the ranch with a few ranch hands and also someone to cook meals at times. The patient states that he has three to four stairs into his home and prior to his admittance to the hospital he was not using any type of assistive device, nor was he regularly on oxygen. He states that he has been on and off oxygen at times, but he probably doesn't use it as consistently as he should. PAST MEDICAL HISTORY: Past medical history can be found in the patient's medical record. OBJECTIVE FINDINGS: General observations: The patient was alert and oriented to setting upon PT arrival. The patient was seated edge of bed on 3 liters of oxygen via the mask. The patient stated that he was doing much better today and was anticipating going home this afternoon as he feels like he doesn't need to be in the hospital any longer due to his improvement in his health status. The patient states that he still has a little bit of a cough, but overall is much better than he was on Saturday. The patient's oxygen saturation in a seated position was 96% prior to any activity. Per conversation with respiratory therapy, on room air the patient was at 83%. Ambulation: The patient did ambulate x100 feet on 3 liters of oxygen. Oxygen was checked senior care through the walk and he was at 84%. The patient denied any lightheadedness or dizziness with drop in oxygen. Per conversation with respiratory, in order for us to perform stairs and further walking activity, we are allowed to bring oxygen up to 4-5 liters. We did ambulate on 4 liters of oxygen x100 feet to the stairs. The patient ascended and descended 6 stairs and then ambulated back to his room. Oxygen saturation was checked once we got back to his room and the patient was at 80%. The patient was instructed on proper breathing techniques and was able to bring his oxygen saturation back up to the 90s in less than one minute. The patient was educated in energy conservation techniques as well. Transfers: The patient was able to independently perform stand to seated transfer. Strength: The patient demonstrated good bilateral lower extremity strength. ASSESSMENT: The patient has good rehab potential. Problem List: Poor endurance secondary to inability to maintain oxygen saturation above 90 % with activity Patient requires education on energy conservation Short-Term Goals: To be met by discharge from inpatient: Patient will be instructed in energy conservation techniques in order to maintain O2 stats above 90% with O2 in order to improve safety with taxing activities. TREATMENT PLAN: Patient will be seen B.I.D during the week and one time per day over the weekend as an inpatient to address the above goals and objectives. INITIAL TREATMENT: Treatment today consisted of the initial evaluation activities only. ADAIR
[2017-05-02] MEDS: ATORVASTATIN 20 MG TABLET PO SCH (20:56)
[2017-05-02] MEDS: ACETAMINOPHEN 325 MG TABLET PO PRN (20:58)
[2017-05-03 04:56] LABS: Hematocrit [HCT] 46.3 % (42.0-52.0); Hemoglobin [HGB] 15.7 g/dL (14.0-18.0); MEAN CORPUSCULAR HEMOGLOBIN 31.1 PG (27-31); MEAN CORPUSCULAR HGB CONC 33.9 g/dL (33-37); MEAN CORPUSCULAR VOLUME 91.7 FL (80-90); RED BLOOD COUNT 5.05 10^6/uL (4.70-6.10)
[2017-05-03 05:07] LABS: BLOOD UREA NITROGEN 12 mg/dL (7-22); BUN/CREATININE RATIO 17.14 (6-20)
[2017-05-03] MEDS: LEVALBUTEROL HCL 0.63 MG/3 ML NEB PRN ×2 (06:26→13:00)
[2017-05-03] MEDS: FUROSEMIDE 40 MG TABLET PO SCH (06:56)
[2017-05-03 08:00] VITALS: BP 106/66; TEMP 97.7
[2017-05-03] MEDS: ENOXAPARIN SODIUM 40 MG/0.4 ML SYRINGE SUBCUT SCH (08:13)
[2017-05-03] MEDS: ACETAMINOPHEN 325 MG TABLET PO PRN (08:14)
[2017-05-03] MEDS: ALLOPURINOL 300 MG TABLET PO SCH (08:14)
[2017-05-03] MEDS: ASPIRIN 81 MG (BABY) CHEWABLE TABLET PO SCH (08:14)
[2017-05-03] MEDS: ACIDOPHILUS/BULGARICUS CHEWABLE TABLET PO SCH (08:14)
[2017-05-03] MEDS: cefTRIAXone Inj 2 GM in Sodium Chloride 0.9% 100 ML IV SCH (08:15)
[2017-05-03] MEDS: CARVEDILOL 3.125 MG TABLET PO SCH (08:15)
[2017-05-03] MEDS: NORMAL SALINE 10 ML SYRINGE FLUSH IVP PRN (08:16)
[2017-05-03] MEDS ORDERED: FUROSEMIDE 10 MG/1 ML - 4 ML IVP ONE (08:16)
[2017-05-03] MEDS ORDERED: POTASSIUM CHLORIDE 20 MEQ TAB PO SCH (09:00)
[2017-05-03 13:02] VITALS: RESP 18; O2SAT 94
== END 2017-05-03 14:37 | disposition home or self-care (01) | DRG 291 ==
LOC: ER 17:57 → MED/SURG 20:58
PROVIDERS: ADMIT Internal Medicine; ATTEND Internal Medicine

== ENCOUNTER 2018-04-07 18:50 | Inpatient (IN) ==
[2018-04-07] MEDS ORDERED: ONDANSETRON 4 MG/2 ML VIAL IVP ONE (19:23)
[2018-04-07] MEDS ORDERED: Sodium Chloride 0.9% 1,000 ML PRIMARY IV ONE (19:23)
[2018-04-07 20:08] LABS: VENOUS PH 7.43 (7.32-7.42)
[2018-04-07] MEDS ORDERED: cefTRIAXone Inj 2 GM in Sodium Chloride 0.9% 100 ML IV ONE (20:09)
[2018-04-07 20:12] LABS: BASOPHILS # (AUTO) 0.02 10*3/UL; BASOPHILS % (AUTO) 0.1 % (0-1); EOSINOPHILS # (AUTO) 0.01 10*3/UL; EOSINOPHILS % (AUTO) 0 % (0-8); Hematocrit [HCT] 48.4 % (42.0-52.0); Hemoglobin [HGB] 16.2 g/dL (14.0-18.0); LYMPHOCYTES # (AUTO) 1.19 10*3/uL; MEAN CORPUSCULAR HEMOGLOBIN 30.9 PG (27-31); MEAN CORPUSCULAR HGB CONC 33.5 g/dL (33-37); MEAN CORPUSCULAR VOLUME 92.4 FL (80-90); MEAN PLATELET VOLUME 10.2 FL (7.4-12.2); MONOCYTES # (AUTO) 1.25 10*3/UL (0.3-0.8); NEUTROPHILS # (AUTO) 22.44 10*3/UL; NEUTROPHILS % (AUTO) 89.7 % (50-80); RED BLOOD COUNT 5.24 10^6/uL (4.70-6.10)
[2018-04-07] MEDS ORDERED: Acetaminophen 1000mg Inj 1,000 MG/100 ML VIAL IV PRN (20:14)
[2018-04-07 20:26] LABS: PLATELET MORPHOLOGY COMMENT NORMAL MORPHOLOGY (NORM); RBC MORPHOLOGY COMMENT NORMAL MORPHOLOGY (NORM); WBC MORPHOLOGY COMMENT NORMAL MORPHOLOGY (NORM)
[2018-04-07 20:27] LABS: BLOOD UREA NITROGEN 19 mg/dL (7-22); SERUM ALBUMIN 4.2 g/dL (3.5-4.8)
[2018-04-07] MEDS ORDERED: FLUTICASONE PROPIONATE 16 GRAM (120 SPRAYS / BOTTLE) ENOS PRN (22:21)
[2018-04-07] MEDS ORDERED: LIDOCAINE W/ SODIUM BICARB 0.5 ML SYR SUBD PRN (22:21)
[2018-04-07] MEDS ORDERED: ONDANSETRON 4 MG/2 ML VIAL IVP PRN (22:21)
[2018-04-07] MEDS ORDERED: ALBUTEROL SULFATE 2.5 MG/3 ML NEB PRN (22:21)
--- NOTE | 2018-04-07 22:32 | DI ---
History: ITS.REASON hypoxia; elevated d-dimer Physician Notes: Tech Comments: Exam: CTA CHEST With Contrast Comparison: 04/29/2017 FINDINGS: No evidence of filling defect to suggest pulmonary embolism. Ectatic thoracic aorta. Status post CABG. No pericardial effusion. Trace left pleural fluid versus pleural thickening. Suggestion of a faint gallstone near the neck of nondistended appearing gallbladder. Small hiatal hernia. The central airways are patent. Patchy basilar streaky opacities may represent atelectasis but developing pneumonia, infiltrate not excluded. Left subscapular intramuscular lipoma again noted, incidental. IMPRESSION: No evidence of filling defect to suggest pulmonary embolism. Status post CABG. Trace left pleural fluid versus pleural thickening. Suggestion of a faint gallstone near the neck of nondistended appearing gallbladder. Small hiatal hernia. The central airways are patent. Patchy basilar streaky opacities may represent atelectasis but developing pneumonia, infiltrate not excluded.
--- NOTE | 2018-04-07 22:44 | HOSP.PSI ---
Pneumonia Severity Index - PSI Age: 78 Sex: Male Group Home Resident: No History of Neoplastic Disease: No History of Liver Disease: No History of Congestive Heart Failure: Yes History of Cerebrovascular Disease: No History of Renal Disease: No Altered Mental Status: No Respiratory Rate Greater Than 30: No Systolic Blood Pressure Less Than 90 mmHg: No Temperature Less Than 95F or Greater Than 103.8F: No Pulse Greater Than 124 bpm: No pH Less Than 7.35: No BUN Greater Than 29: No Sodium Less Than 130: No Glucose Greater Than 249: No Hematocrit Less Than 30%: No Partial Pressure of Oxygen Less Than 60 mmHg: No Pleural Effusion on Xray: Yes (patient being admitted for evaluation and management of pneumonia.) Total PSI Score: 98 PSI Risk: Moderate Risk (91-131) = Consider Inpatient Admission
--- NOTE | 2018-04-07 22:49 | PDOC ---
HPI - History of Present Illness Date of Service: 04/07/18 Time of Service: 22:44 Chief Complaint: Not feeling well History of Present Illness: Very pleasant 78-year-old male with history of coronary artery disease status post CABG, hypertension, possible atrial fibrillation as he is on amiodarone, who comes in accompanied by a friend shady with complaints of just not feeling well over the past week. He states he noticed with a pulse oximeter at home that his oxygen saturations were dropping over the last week. He states on Saturday he did not feel very good at all. Today he had some nausea and vomiting and went into the urgent care later in the afternoon and was diagnosed with pneumonia and sent over to the emergency room given his low oxygen stay, oxygen requirement, and findings of pneumonia on chest x-ray. He states he has no cough. He had a mild fever when he got to the emergency room. He did not get the flu vaccine and he has not had Pneumovax vaccine. His influenza studies were negative. Chest x-ray showed what appeared to be bilateral basilar infiltrates and possible small pleural effusion. A CT scan was done of the chest and it shows what appears to be bilateral pneumonia with a very small pleural effusion on the left side probably too small to sample at this point. Patient is requiring about 3-4 L of oxygen to maintain his saturations. He does not smoke. His pneumonia severity index score was over 90 and put some in a class IV pneumonia. He got a dose of Rocephin in the emergency room. Past Medical History Medical History: 1. Coronary artery disease status post CABG about 6 years ago. 2. History of congestive heart failure. 3. Psoriasis. 4. Gouty arthropathy. 5. Hypertension. 6. Hypercholesterolemia. 7. Possible arrhythmia as he is on amiodarone. Surgical History: 1. CABG as mentioned Family History: Reviewed an Not Pertinent Pertinent Family History: Significant for coronary artery disease in his father. Past Social History: Doesn't smoke, doesn't drink alcohol, no drugs. Lives on a ranch. Has several children described as healthy. He tells me he is full code. Tobacco Use: Former Smoker In the Past 12 Months, Have Used or Abuse Any of the Following Substance: None Alcohol Use: None Medication / Allergies Home Medications: Home Medications Medication Instructions Recorded Confirmed Type Allopurinol 1 tab PO DAILY tab 11/19/14 04/07/18 History Amiodarone HCl 200 mg PO DAILY tab 11/19/14 04/07/18 History Aspirin 81 mg PO DAILY tab 11/19/14 04/07/18 History Carvedilol 1 tab PO BID tab 11/19/14 04/07/18 History Cholecalciferol (Vitamin D3) 1 cap PO PRN PRN cap 11/19/14 04/07/18 History [Vitamin D3] Furosemide 2 tab PO DAILY tab 11/19/14 04/07/18 History Potassium Chloride 1 tab PO DAILY tab 11/19/14 04/07/18 History Spironolactone [Aldactone] 1 tab PO BID tab 11/19/14 04/07/18 History Albuterol [PROVENTIL HFA] 1 - 2 inh BUCCAL .Q4-6H PRN #1 05/02/17 04/07/18 Rx inhaler Fluticasone Nasal [place] 0.05% 2 sprays SIMON BID PRN bottle 05/02/17 04/07/18 Rx [Flonase Nasal [place] 0.05%] Pitavastatin Calcium [Livalo] 2 mg PO DAILY 04/07/18 04/07/18 History Allergies/Adverse Reactions: Allergies Allergy/AdvReac Type Severity Reaction Status Date / Time No Known Allergies Allergy Verified 04/07/18 19:16 Review of Systems - Review of Systems All Systems: Reviewed & No Additional Complaints Except as Stated (I did a 12 point review systems and it was negative other than that discussed below and in the history of present illness.) Exam - Vitals Vital Signs: Vital Signs Temperature 100.5 F Pulse Rate [Pulse Oximeter] 95 Respiratory Rate 18 Blood Pressure [Left Arm] 109/62 Pulse Ox 94 Oxygen Flow Rate 4 Oxygen Delivery Method nasal cannula oxygen Height 5 ft 8 in Weight 212 lb - General General Appearance: No Acute Distress, Cooperative - Head Head Exam: Normal Inspection, Normocephalic, Atraumatic - Eye Eye Exam: POSITIVE: No Scleral Icterus - ENT ENT Exam: POSITIVE: Mucous Membranes Moist - Neck Neck Exam: Normal Inspection, No Tenderness, No Lymphadenopathy, No Thyromegaly, JVP is not Raised - Respiratory Respiratory Exam: POSITIVE: Breathing Non Labored, Decreased Breath Sounds, Crackles (Bibasilar crackles) - Cardiovascular Cardiovascular Exam: POSITIVE: No Murmur, No Clicks, No Gallops, No Rubs, Irregular Rhythm, No JVD - GI/Abdominal GI/Abdominal Exam: POSITIVE: Normal Bowel Sounds, Non Tender, Non Distended, Soft - Rectal Rectal Exam: POSITIVE: Deferred - External Exam: POSITIVE: Deferred Exam: POSITIVE: Deferred - Extremities Extremities Exam: POSITIVE: No Clubbing Present, No Cyanosis Present, +1 Edema - Back Back Exam: POSITIVE: No CVA Tenderness - Neurological Neurological Exam: POSITIVE: Alert, Oriented x 3, No Facial Droop, Speech Intact / Clear, Moves All Extremities Equally - Psychiatric Psychiatric Exam: POSITIVE: Normal Affect, Normal Mood - Integumentary Additional Integumentary Exam Details: Psoriatic plaques, lower back Results - Labs CBC and BMP: 04/07/18 20:09 04/07/18 20:09 Additional Lab Results: Laboratory Results 04/07/18 04/07/18 04/07/18 19:58 20:09 20:09 WBC 25.00 H RBC 5.24 Hgb 16.2 Hct 48.4 MCV 92.4 H MCH 30.9 MCHC 33.5 RDW Std Deviation 49.6 RDW Coeff of Brendan 14.9 H Plt Count 199 MPV 10.2 Immature Gran % (Auto) 0.4 Neut % (Auto) 89.7 H Lymph % (Auto) 4.8 L [place] % (Auto) 5.0 Eos % (Auto) 0 Baso % (Auto) 0.1 Immature Gran # (Auto) 0.09 Neut # (Auto) 22.44 Lymph # (Auto) 1.19 [place] # (Auto) 1.25 H Eos # (Auto) 0.01 Baso # (Auto) 0.02 WBC Morphology Comment Normal morphology Plt Morphology Comment Normal morphology RBC Morph Comment Normal morphology D-Dimer 0.70 H VBG pH 7.43 H VBG pCO2 46 VBG HCO3 31 H VBG Base Excess 6 H Sodium Potassium Chloride Carbon Dioxide Anion Gap BUN Creatinine BUN/Creatinine Ratio Glucose Calculated Osmolality Lactic Acid Calcium Total Bilirubin AST ALT Alkaline Phosphatase C-Reactive Protein Total Protein Albumin Globulin Albumin/Globulin Ratio 04/07/18 04/07/18 20:09 20:09 WBC RBC Hgb Hct MCV MCH MCHC RDW Std Deviation RDW Coeff of Brendan Plt Count MPV Immature Gran % (Auto) Neut % (Auto) Lymph % (Auto) [place] % (Auto) Eos % (Auto) Baso % (Auto) Immature Gran # (Auto) Neut # (Auto) Lymph # (Auto) [place] # (Auto) Eos # (Auto) Baso # (Auto) WBC Morphology Comment Plt Morphology Comment RBC Morph Comment D-Dimer VBG pH VBG pCO2 VBG HCO3 VBG Base Excess Sodium 138 Potassium 4.2 Chloride 102 Carbon Dioxide 26 Anion Gap 10 BUN 19 Creatinine 1.0 BUN/Creatinine Ratio 19.00 Glucose 110 Calculated Osmolality 288.0 Lactic Acid 1.9 Calcium 9.4 Total Bilirubin 1.5 H AST 37 ALT 44 Alkaline Phosphatase 68 C-Reactive Protein 5.8 H Total Protein 6.5 Albumin 4.2 Globulin 2.3 L Albumin/Globulin Ratio 1.80 - Imaging Status: Image Reviewed by Me (Chest x-ray shows what looks like a right sided lower lobe pneumonia to me. Difficult to tell on the left side. CT scan shows what appears to be bibasilar opacities consistent with probable pneumonia and a left sided pleural effusion very small and probably too small to sample at this point.) Assessment and Plan - Patient Problems (1) Pneumonia Current Visit: Yes Status: Acute Code(s): J18.9 - Pneumonia, unspecified organism Qualifiers: Pneumonia type: due to unspecified organism Laterality: right Lung location: lower lobe of lung Qualified Code(s): J18.1 - Lobar pneumonia, uns pecified organism (2) Coronary artery disease Current Visit: Yes Status: Acute Code(s): I25.10 - Atherosclerotic heart disease of [place] coronary artery without angina pectoris Qualifiers: Coronary Disease-Associated Artery/Lesion type: [place] artery [place] vs. transplanted heart: [place] heart Associated angina: without angina Qualified Code(s): I25.10 - Atherosclerotic heart disease of [place] coronary artery without angina pectoris (3) Arrhythmia Current Visit: Yes Status: Acute Code(s): I49.9 - Cardiac arrhythmia, unspecified Qualifiers: Arrhythmia type: unspecified cardiac arrhythmia Qualified Code(s): I49.9 - Cardiac arrhythmia, unspecified (4) Hypertension Current Visit: Yes Status: Acute Code(s): I10 - Essential (primary) hy pertension Qualifiers: Hypertension type: essential hypertension Qualified Code(s): I10 - Essential (primary) hypertension (5) Congestive heart failure Current Visit: Yes Status: Chronic Code(s): I50.9 - Heart failure, unspecified - Assessment / Plan Additional Assessment/Plan Details: Admit patient. Antibiotics will be given IV rocephin and zithromax I will write for some breathing therapies including nebulized therapies if necessary. Oxygen as necessary to keep saturations greater than 91%. Respiratory therapy to evaluate. Vitamin C by mouth. We'll check a urinary antigen for strep pneumoniae. vaccine status reviewed has not had either flu shot or Pneumovax, will offer PSI score is 98 . Class IV pneumonia CURB-65 is 1 smoking status negative, so no need for smoking cessation and nicotine replacement Repeat labs in a.m. CODE STATUS discussed, full code. Blood cultures are pending. Telemetry monitoring for now. course of antibiotics will be 5 to 7 days, and will switch to oral antibiotics within 48 hours if clinical picuture stabilizes. Likely in this situation 7 days. We'll definitely need reimaging, particularly with small left-sided pleural effu [place] that's too small at this time to sample. Try to get records to confirm why he is on amiodarone as there is no listing of anticoagulants therapy. We'll check PT and INR as well. Plan above discussed with patient and patient agreed
[2018-04-07] MEDS ORDERED: Sodium Chloride 0.9% 500 ML IV ONE (23:07)
--- NOTE | 2018-04-07 23:11 | EKG ---
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
[2018-04-07] MEDS: Sodium Chloride 0.9% 1,000 ML PRIMARY IV SCH (23:17)
--- NOTE | 2018-04-08 03:50 | PDOC ---
General Adult HPI - General Chief Complaint: Respiratory Complaint Stated Complaint: HYPOXIA WITH POSSIBLE PNEUMONIA Date Seen by Provider: 04/07/18 Time Seen by Provider: 19:05 Source: POSITIVE: Patient, EMS, Other (Son) Exam Limitations: POSITIVE: No limitations Nurse's Notes Reviewed & Considered: Yes EMS Report Reviewed & Considered: Verbal - History of Present Illness Initial Comment: The patient is a 78-year-old male. Patient presented to the emergency room with complaints of shortness of breath, fever and cough. He originally went to the clinic and was evaluated there and was noted to have hypoxia, 78% on room air. A chest x-ray was performed at the clinic which showed probable bibasilar infiltrates. Patient has been having a fever, up to 101.3F, at 1600. Patient has not had a flu shot. He is not sure if he's had a pneumonia vaccination. Mild cough. He's had chills earlier today. He received a DuoNeb nebulizer treatment in the clinic. He had an episode of vomiting earlier today. No abdominal pain. No headache. Have you received a tetanus shot in the past 10 years?: Yes Body Location Affected: REPORTS: Chest Timing: REPORTS: Gradual, Getting Worse Duration: >24 hours Severity: Moderate Quality: REPORTS: Other (Patient denies any pain anywhere) Context: REPORTS: None Modifying Factors: improves with: Vomiting (Times one) Similar Symptoms Previously: No Recent Care Received: REPORTS: Recently Seen, Treated by MD (In the clinic earlier today, as above) Any Prior Injuries Related to Current Complaint?: No - Patient Home Medications Home Medications: Home Medications Allopurinol 1 tab PO DAILY tab 11/19/14 Amiodarone HCl 200 mg PO DAILY tab 11/19/14 Aspirin 81 mg PO DAILY tab 11/19/14 Carvedilol 1 tab PO BID tab 11/19/14 Cholecalciferol (Vitamin D3) [Vitamin D3] 1 cap PO PRN PRN cap 11/19/14 Furosemide 2 tab PO DAILY tab 11/19/14 Potassium Chloride 1 tab PO DAILY tab 11/19/14 Spironolactone [Aldactone] 1 tab PO BID tab 11/19/14 Albuterol [PROVENTIL HFA] 1 - 2 inh BUCCAL .Q4-6H PRN #1 inhaler 05/02/17 Fluticasone Nasal [place] 0.05% [Flonase Nasal [place] 0.05%] 2 sprays SIMON BID PRN bottle 05/02/17 Pitavastatin Calcium [Livalo] 2 mg PO DAILY 04/07/18 - Patient Allergies Allergies/Adverse Reactions: Allergies Allergy/AdvReac Type Severity Reaction Status Date / Time No Known Allergies Allergy Verified 04/07/18 19:16 Past Medical History - heen HEENT History: Denies History Cardiovascular History: Previous [place], Other (please comment) Additional Cardiovasular History: STENTS X 5 5 YEARS AGO Respiratory History: COPD, Home Oxygen Use, Other (please comment) Additional Respiratory History: PT REPORTS THAT IS SUPPOSE TO WEAR O2 AT NIGHT BUT UNSURE HOW MANY LITERS OR IF WITH CPAP Gastrointestinal History: Denies History Genitourinary History: Denies History Endocrine History: Denies History Musculoskeletal History: Back Pain Neurological History: Denies History Blood Disorders: Denies History Psychiatric History: Denies History History of Sexually Transmitted Diseases: No Male Reproductive History: Denies History Cancer History: Denies History In Past Year Been Physically Harmed or Verbally Threatened: No History of MDRO: Yes Type of MDRO: MRSA History of Other Communicable Diseases: No Tobacco Use: Former Smoker In the Past 12 Months, Have Used or Abuse Any Substance: None Previous Surgical History: Yes Type / Date of Surgery: LUMBAR FUSION X 2 3 YEARS AGO. CARDIAC STENTS X 5 Significant Family History: No pertinent family hx Past Medical History Reviewed: Reviewed - No Changes ROS - Limitations ROS Limitations: No Limitations Constitution: REPORTS: Chills, Fever Cardiovascular: REPORTS: Denies Cardiac Symptoms Respiratory: REPORTS: Cough Non Productive, Shortness Of Breath Neurological: REPORTS: Denies Neuro Symptoms Gastrointestinal: REPORTS: Denies GI Symptoms Endocrine: REPORTS: Denies Symptoms Musculoskeletal: REPORTS: Denies MS Symptoms Genitourinary: REPORTS: Denies Symptoms Eyes: REPORTS: Denies Symptoms ENT: REPORTS: Denies Symptoms Skin: REPORTS: Denies Skin Symptoms Lympathic: REPORTS: Denies Lympathic Symptoms Immunologic: POSITIVE: Denies Symptoms Psychiatric: POSITIVE: Denies Psych Symptoms General Adult Exam - General Appearance General Appearance: POSITIVE: Alert, Cooperative, No Acute Distress, No Evidence of Trauma - HEENT HEENT: POSITIVE: Head Inspection Nml, Eyes Inspection Nml, Ears Inspection Nml, Nose Inspection Nml, Oral/Dental Inspect. Nml, Pharynx Inspect. Nml, PERRL, EOMI - Pupils Pupil Size: 3 mm: Bilateral (PERRLA) - Neck Neck: POSITIVE: Normal Inspection, Thyroid Normal - Respiratory Respiratory: POSITIVE: Chest Non-Tender, Rales (Rales both posterior lung fi elds, especially at the bases) - Cardiovascular Cardiovascular: POSITIVE: Regular Rate & Rhythm, No Murmur, No Gallop, PMI Normal Peripheral Pulses: Radial (R): 2+, Radial (L): 2+ - Abdomen Abdomen: Soft: (All Quadrants), Normal Bowel Sounds: (All Quadrants), Denies Tenderness: (All Quadrants), No Splenomegaly: (All Quadrants), No Hepatomegaly: (All Quadrants), No Guarding: (All Quadrants), No Rebound: (All Quadrants), No Palpable Pulse: (All Quadrants), No Palpabale Mass: (All Quadrants), No Distention: (All Quadrants), No Rigidity: (All Quadrants) - Back Back: POSITIVE: Normal Inspection - Skin Skin: POSITIVE: Normal Color, Warm, Dry, No Rash - Extremities Extremity: Non-Tender: (All Extremities), Normal ROM: (All Extremities), Normal Inspection: (All Extremities) - Neurological / Psychological Neurological: POSITIVE: Affect Apporpriate, Oriented X3, wastewater manager Normal As Tested, Motor Normal, Sensation Normal General Adult Progress - Results Reviewed by me Xrays/CTs/US Reviewed by me: Yes Discussed with Radiologist: Yes Radiology Findings: Chest x-ray shows bibasilar streaky opacities compatible with pneumonia. Small left pleural effusion. CTA chest shows no PE. Lab Results:: Laboratory Results 04/07/18 04/07/18 04/07/18 19:58 20:09 20:09 WBC 25.00 H RBC 5.24 Hgb 16.2 Hct 48.4 MCV 92.4 H MCH 30.9 MCHC 33.5 RDW Std Deviation 49.6 RDW Coeff of Brendan 14.9 H Plt Count 199 MPV 10.2 Immature Gran % (Auto) 0.4 Neut % (Auto) 89.7 H Lymph % (Auto) 4.8 L [place] % (Auto) 5.0 Eos % (Auto) 0 Baso % (Auto) 0.1 Immature Gran # (Auto) 0.09 Neut # (Auto) 22.44 Lymph # (Auto) 1.19 [place] # (Auto) 1.25 H Eos # (Auto) 0.01 Baso # (Auto) 0.02 WBC Morphology Comment Normal morphology Plt Morphology Comment Normal morphology RBC Morph Comment Normal morphology D-Dimer 0.70 H VBG pH 7.43 H VBG pCO2 46 VBG HCO3 31 H VBG Base Excess 6 H Sodium Potassium Chloride Carbon Dioxide Anion Gap BUN Creatinine BUN/Creatinine Ratio Glucose Calculated Osmolality Lactic Acid Calcium Total Bilirubin AST ALT Alkaline Phosphatase C-Reactive Protein Total Protein Albumin Globulin Albumin/Globulin Ratio 04/07/18 04/07/18 20:09 20:09 WBC RBC Hgb Hct MCV MCH MCHC RDW Std Deviation RDW Coeff of Brendan Plt Count MPV Immature Gran % (Auto) Neut % (Auto) Lymph % (Auto) [place] % (Auto) Eos % (Auto) Baso % (Auto) Immature Gran # (Auto) Neut # (Auto) Lymph # (Auto) [place] # (Auto) Eos # (Auto) Baso # (Auto) WBC Morphology Comment Plt Morphology Comment RBC Morph Comment D-Dimer VBG pH VBG pCO2 VBG HCO3 VBG Base Excess Sodium 138 Potassium 4.2 Chloride 102 Carbon Dioxide 26 Anion Gap 10 BUN 19 Creatinine 1.0 BUN/Creatinine Ratio 19.00 Glucose 110 Calculated Osmolality 288.0 Lactic Acid 1.9 Calcium 9.4 Total Bilirubin 1.5 H AST 37 ALT 44 Alkaline Phosphatase 68 C-Reactive Protein 5.8 H Total Protein 6.5 Albumin 4.2 Globulin 2.3 L Albumin/Globulin Ratio 1.80 CBC and BMP: 04/07/18 20:09 04/07/18 20:09 - Patient's Progress Pain Medication Addressed: POSITIVE: Not Applicable School/Work Release Addressed: POSITIVE: Not Applicable Re-Examine Time: 21:45 Re-Examine Comment: 2 blood cultures were drawn and then patient was given 2 g of Rocephin IV. Case was discussed with Dr. Goodson, hospitalist, who was admitted the patient for further evaluation and treatment. Oxygen saturations on 4 L held between 9495%. Temperature was 100.5 on arrival and they did go up to the 102; Tylenol given. Status: POSITIVE: Unchanged, Re-Examined Antibiotics Given: Yes (Rocephin 2 g IV) Quality Measure Initiative: CAP: POSITIVE: SaO2, Antibiotic(s), BC, CXR or CT - Consult Consult (If Yes, Name of Consulting MD & Time Called): Yes (Dr. Goodson, [facility], 1887) Consulting MD will see pt:: POSITIVE: [facility] Admit Counseled: POSITIVE: Patient, Family, RE: Lab Results, RE: Radiology Results, RE: DX, RE: Need for F/U Patient Care Time - Estimated PCT Patient Care Time (In Minutes): 50 Vital Signs - VS Reviewed Vital Signs Reviewed: Yes Discharge Clinical Impression: Pneumonia Qualifiers: Pneumonia type: due to unspecified organism Laterality: right Lung location: lower lobe of lung Qualified Code(s): J18.1 - Lobar pneumonia, unspecified organism Discharge Disposition: Admit to Inpatient Condition: Good Date Decision to Admit to Inpatient: 04/07/18 Time Decision to Admit to Inpatient: 21:45
[2018-04-08 05:19] LABS: BASOPHILS # (AUTO) 0.01 10*3/UL; BASOPHILS % (AUTO) 0.1 % (0-1); EOSINOPHILS # (AUTO) 0.02 10*3/UL; EOSINOPHILS % (AUTO) 0.1 % (0-8); Hematocrit [HCT] 43.2 % (42.0-52.0); Hemoglobin [HGB] 14.2 g/dL (14.0-18.0); LYMPHOCYTES # (AUTO) 1.02 10*3/uL; MEAN CORPUSCULAR HEMOGLOBIN 30.7 PG (27-31); MEAN CORPUSCULAR HGB CONC 32.9 g/dL (33-37); MEAN CORPUSCULAR VOLUME 93.3 FL (80-90); MEAN PLATELET VOLUME 10.5 FL (7.4-12.2); MONOCYTES # (AUTO) 0.76 10*3/UL (0.3-0.8); MONOCYTES % (AUTO) 5.2 % (5-15); NEUTROPHILS # (AUTO) 12.77 10*3/UL; NEUTROPHILS % (AUTO) 87.5 % (50-80); RED BLOOD COUNT 4.63 10^6/uL (4.70-6.10)
[2018-04-08 05:38] LABS: BLOOD UREA NITROGEN 17 mg/dL (7-22); BUN/CREATININE RATIO 18.88 (6-20)
[2018-04-08 06:09] LABS: PLATELET MORPHOLOGY COMMENT NORMAL MORPHOLOGY (NORM); RBC MORPHOLOGY COMMENT NORMAL MORPHOLOGY (NORM); WBC MORPHOLOGY COMMENT NORMAL MORPHOLOGY (NORM)
[2018-04-08] MEDS ORDERED: Sodium Chloride 0.9% 1,000 ML PRIMARY IV ONE (07:49)
[2018-04-08] MEDS ORDERED: Influenza 18-19 Vaccine (6mo+) 60 MCG/0.5 ML SYRINGE IM ONE (09:00)
[2018-04-08] MEDS ORDERED: PITAVASTATIN CALCIUM 2 MG PO SCH (09:00)
[2018-04-08] MEDS ORDERED: AMIODARONE 200 MG TABLET PO SCH (09:00)
[2018-04-08] MEDS ORDERED: Spironolactone Tab 25 MG TAB PO SCH (09:00)
[2018-04-08] MEDS ORDERED: PNEUMOCOCCAL 23 VACCINE 25 MCG/0.5 ML VIAL IM ONE (09:00)
[2018-04-08] MEDS: CHOLECALCIFEROL 1000 IU TABLET PO SCH (09:18)
[2018-04-08] MEDS: ALLOPURINOL 300 MG TABLET PO SCH (09:18)
[2018-04-08] MEDS: ASCORBIC ACID Chewable 500 MG TABLET PO SCH (09:18)
[2018-04-08] MEDS: ASPIRIN 81 MG (BABY) CHEWABLE TABLET PO SCH (09:18)
[2018-04-08] MEDS: CARVEDILOL 3.125 MG TABLET PO SCH ×2 (09:18→20:56)
[2018-04-08] MEDS: FUROSEMIDE 40 MG TABLET PO SCH (09:19)
[2018-04-08] MEDS: ENOXAPARIN SODIUM 40 MG/0.4 ML SYRINGE SUBCUT SCH (09:19)
[2018-04-08] MEDS: POTASSIUM CHLORIDE 20 MEQ TAB PO SCH (09:19)
[2018-04-08] MEDS: Sodium Chloride 0.9% 1,000 ML PRIMARY IV SCH ×2 (10:55→19:47)
--- NOTE | 2018-04-08 13:19 | PDOC(PROG) ---
Date of Service: 04/08/18 Time of Service: 11:30 Interval History: Feeling much better. No chest pain. Less short of breath. RN reports desaturation and lack of oxygen use when ambulating to the bathroom. He is willing to do Pneumovax. Not interested in influenza vaccine. MRSA screen was negative. Objective : Data - Labs CBC and BMP: 04/08/18 05:00 04/08/18 05:00 Additional Lab Results: 04/08/18 05:00 PT 11.4 INR 1.13 Objective : Exam - General General Appearance: No Acute Distress, Cooperative Additional General Exam Details: Vital Signs - Last Taken Temperature 98 F 04/08/18 13:00 Pulse Rate 69 04/08/18 13:00 Respiratory Rate 24 04/08/18 13:00 Blood Pressure 93/54 04/08/18 13:00 Pulse Ox 94 04/08/18 13:00 - Eye Eye Exam: No Scleral Icterus - ENT ENT Exam: Mucous Membranes Moist - Respiratory Respiratory Exam: Breathing Non Labored, Crackles (In the bases bilaterally) - Cardiovascular Cardiovascular Exam: RRR, No Murmur, No Clicks, No Gallops, No Rubs, No JVD - GI/Abdominal GI/Abdominal Exam: Normal Bowel Sounds, Non Tender, Non Distended, Soft - Extremities Extremities Exam: No Clubbing Present, No Edema Present, No Cyanosis Present - Neurological Neurological Exam: Alert, Oriented x 3, No Facial Droop, Speech Intact / Clear, Moves All Extremities Equally - Psychiatric Psychiatric Exam: Normal Affect, Normal Mood Assessment and Plan - Patient Problems (1) Pneumonia Current Visit: Yes Status: Acute Code(s): J18.9 - Pneumonia, unspecified organism Qualifiers: Pneumonia type: due to unspecified organism Laterality: right Lung location: lower lobe of lung Qualified Code(s): J18.1 - Lobar pneumonia, unspecified organism (2) Coronary artery disease Current Visit: Yes Status: Acute Code(s): I25.10 - Atherosclerotic heart disease of [place] coronary artery without angina pectoris Qualifiers: Coronary Disease-Associated Artery/Lesion type: [place] artery [place] vs. transplanted heart: [place] heart Associated angina: without angina Qualified Code(s): I25.10 - Atherosclerotic heart disease of [place] coronary artery without angina pectoris (3) Arrhythmia Current Visit: Yes Status: Acute Code(s): I49.9 - Cardiac arrhythmia, unspecified Qualifiers: Arrhythmia type: unspecified cardiac arrhythmia Qualified Code(s): I49.9 - Cardiac arrhythmia, unspecified (4) Hypertension Current Visit: Yes Status: Acute Code(s): I10 - Essential (primary) hypertension Qualifiers: Hypertension type: essential hypertension Qualified Code(s): I10 - Essenti al (primary) hypertension (5) Congestive heart failure Current Visit: Yes Status: Chronic Code(s): I50.9 - Heart failure, unspecified - Assessment / Plan Additional Assessment/Plan Details: Continue Rocephin and Zithromax, day #2 of 7. CBC with differential in a.m. Held off on diuretics today. Still hypotensive so bolused another liter of normal saline and we will see if we need to proceed with further. He did have bacteremia on his last bout of pneumonia. Pneumovax vaccine given today. He does not want influenza vaccine. Oxygen. Breathing therapies when necessary. We'll try to obtain cardiology records from [place] [facility] does review what the indication for amiodarone is.
[2018-04-08] MEDS: cefTRIAXone Inj 2 GM in Sodium Chloride 0.9% 100 ML IV SCH (19:44)
[2018-04-08] MEDS: PITAVASTATIN CALCIUM 2 MG PO SCH (20:57)
[2018-04-09 04:55] LABS: BASOPHILS # (AUTO) 0.01 10*3/UL; BASOPHILS % (AUTO) 0.1 % (0-1); EOSINOPHILS # (AUTO) 0.28 10*3/UL; EOSINOPHILS % (AUTO) 2.5 % (0-8); Hematocrit [HCT] 42.2 % (42.0-52.0); Hemoglobin [HGB] 13.4 g/dL (14.0-18.0); MEAN CORPUSCULAR HEMOGLOBIN 30.1 PG (27-31); MEAN CORPUSCULAR HGB CONC 31.8 g/dL (33-37); MEAN CORPUSCULAR VOLUME 94.8 FL (80-90); MEAN PLATELET VOLUME 9.8 FL (7.4-12.2); MONOCYTES # (AUTO) 0.71 10*3/UL (0.3-0.8); MONOCYTES % (AUTO) 6.4 % (5-15); NEUTROPHILS # (AUTO) 8.91 10*3/UL; NEUTROPHILS % (AUTO) 80.1 % (50-80); RED BLOOD COUNT 4.45 10^6/uL (4.70-6.10)
[2018-04-09] MEDS: Sodium Chloride 0.9% 1,000 ML PRIMARY IV SCH (05:17)
[2018-04-09 05:41] LABS: PLATELET MORPHOLOGY COMMENT NORMAL MORPHOLOGY (NORM); RBC MORPHOLOGY COMMENT NORMAL MORPHOLOGY (NORM); WBC MORPHOLOGY COMMENT NORMAL MORPHOLOGY (NORM)
[2018-04-09] MEDS: ASPIRIN 81 MG (BABY) CHEWABLE TABLET PO SCH (08:18)
[2018-04-09] MEDS: ALLOPURINOL 300 MG TABLET PO SCH (08:18)
[2018-04-09] MEDS: CHOLECALCIFEROL 1000 IU TABLET PO SCH (08:18)
[2018-04-09] MEDS: ASCORBIC ACID Chewable 500 MG TABLET PO SCH (08:18)
[2018-04-09] MEDS: ENOXAPARIN SODIUM 40 MG/0.4 ML SYRINGE SUBCUT SCH (08:18)
[2018-04-09] MEDS: FUROSEMIDE 40 MG TABLET PO SCH (08:18)
[2018-04-09] MEDS: POTASSIUM CHLORIDE 20 MEQ TAB PO SCH (08:18)
[2018-04-09] MEDS: CARVEDILOL 3.125 MG TABLET PO SCH ×2 (08:18→20:35)
--- NOTE | 2018-04-09 16:01 | PDOC(PROG) ---
Date of Service: 04/09/18 Time of Service: 09:30 Interval History: no chest pain not feeling short of breath still requiring 4.5 LPM via NC no nausea and no vomiting. Objective : Data - Labs CBC and BMP: 04/09/18 04:50 04/08/18 05:00 Objective : Exam - General General Appearance: No Acute Distress, Cooperative Additional General Exam Details: Vital Signs - Last Taken Temperature 98.4 F 04/09/18 11:46 Pulse Rate 78 04/09/18 11:46 Respiratory Rate 24 04/09/18 11:46 Blood Pressure 119/75 04/09/18 11:46 Pulse Ox 94 04/09/18 11:46 - Eye Eye Exam: No Scleral Icterus - ENT ENT Exam: Mucous Membranes Moist - Neck Neck Exam: JVP is not Raised - Respiratory Respiratory Exam: Breathing Non Labored, Crackles (slight bibasilar crackles.), Coarse Breath Sounds - Cardiovascular Cardiovascular Exam: RRR, No Murmur, No Clicks, No Gallops, No Rubs, No JVD - GI/Abdominal GI/Abdominal Exam: Normal Bowel Sounds, Non Tender, Non Distended, Soft - Extremities Extremities Exam: No Clubbing Present, No Cyanosis Present Additional Extremities Exam Details: trace edema. - Neurological Neurological Exam: Alert, Oriented x 3, No Facial Droop, Speech Intact / Clear, Moves All Extremities Equally Assessment and Plan - Patient Problems (1) Pneumonia Current Visit: Yes Status: Acute Code(s): J18.9 - Pneumonia, unspecified organism Qualifiers: Pneumonia type: due to unspecified organism Laterality: right Lung location: lower lobe of lung Qualified Code(s): J18.1 - Lobar pneumonia, unspecified organism (2) Coronary artery disease Current Visit: Yes Status: Acute Code(s): I25.10 - Atherosclerotic heart disease of [place] coronary artery without angina pectoris Qualifiers: Coronary Disease-Associated Artery/Lesion type: [place] artery [place] vs. transplanted heart: [place] heart Associated angina: without angina Qualified Code(s): I25.10 - Atherosclerotic heart disease of [place] coronary artery withou t angina pectoris (3) Hypertension Current Visit: Yes Status: Acute Code(s): I10 - Essential (primary) h ypertension Qualifiers: Hypertension type: essential hypertension Qualified Code(s): I10 - Essential (primary) hypertension (4) Congestive heart failure Current Visit: Yes Status: Chronic Code(s): I50.9 - Heart failure, unspecified - Assessment / Plan Additional Assessment/Plan Details: continue rocephin and zithromax, day #3 breathing therapies as necessary okay to stop IV fluids today, saline lock. blood pressures are improved would like to see oxygen saturations improve a bit, but suspect patient will need to be on home oxygen labs in AM will order IS
[2018-04-09] MEDS: cefTRIAXone Inj 2 GM in Sodium Chloride 0.9% 100 ML IV SCH (19:51)
[2018-04-09] MEDS: PITAVASTATIN CALCIUM 2 MG PO SCH (20:36)
[2018-04-10 05:57] LABS: BASOPHILS # (AUTO) 0.01 10*3/UL; BASOPHILS % (AUTO) 0.1 % (0-1); EOSINOPHILS # (AUTO) 0.34 10*3/UL; EOSINOPHILS % (AUTO) 3.9 % (0-8); Hematocrit [HCT] 44.6 % (42.0-52.0); Hemoglobin [HGB] 14.2 g/dL (14.0-18.0); MEAN CORPUSCULAR HGB CONC 31.8 g/dL (33-37); MEAN CORPUSCULAR VOLUME 94.1 FL (80-90); MEAN PLATELET VOLUME 10.3 FL (7.4-12.2); MONOCYTES # (AUTO) 0.59 10*3/UL (0.3-0.8); MONOCYTES % (AUTO) 6.7 % (5-15); NEUTROPHILS # (AUTO) 6.64 10*3/UL; NEUTROPHILS % (AUTO) 75.5 % (50-80); RED BLOOD COUNT 4.74 10^6/uL (4.70-6.10)
[2018-04-10 06:02] LABS: PLATELET MORPHOLOGY COMMENT NORMAL MORPHOLOGY (NORM); RBC MORPHOLOGY COMMENT NORMAL MORPHOLOGY (NORM); WBC MORPHOLOGY COMMENT NORMAL MORPHOLOGY (NORM)
[2018-04-10 06:18] LABS: CHOL/HDL RATIO 4.46 RATIO (0-4.0)
[2018-04-10] MEDS: ALLOPURINOL 300 MG TABLET PO SCH (08:19)
[2018-04-10] MEDS: ASCORBIC ACID Chewable 500 MG TABLET PO SCH (08:19)
[2018-04-10] MEDS: CHOLECALCIFEROL 1000 IU TABLET PO SCH (08:19)
[2018-04-10] MEDS: ASPIRIN 81 MG (BABY) CHEWABLE TABLET PO SCH (08:19)
[2018-04-10] MEDS: CARVEDILOL 3.125 MG TABLET PO SCH (08:19)
[2018-04-10] MEDS: POTASSIUM CHLORIDE 20 MEQ TAB PO SCH (08:19)
[2018-04-10] MEDS: ENOXAPARIN SODIUM 40 MG/0.4 ML SYRINGE SUBCUT SCH (08:19)
[2018-04-10] MEDS: FUROSEMIDE 40 MG TABLET PO SCH (08:19)
[2018-04-10] MEDS ORDERED: Influenza 18-19 Vaccine (6mo+) 60 MCG/0.5 ML SYRINGE IM ONE (09:32)
[2018-04-10 11:05] VITALS: BP 113/83; RESP 19; TEMP 97.4
[2018-04-10 11:06] VITALS: O2SAT 91
--- NOTE | 2018-04-10 11:46 | DCSUMMARY ---
Hospitalization Summary Admit Date: 04/07/2017 Discharge Date: 04/10/18 Primary Diagnosis:: community acquired pneumonia Secondary Diagnosis:: COPD, noncompliance with oxygen therapy. Hospital Course: This very pleasant 78-year-old male that came in with symptoms of feeling poorly, shortness breath, nonproductive cough, and was found to have a pneumonia with fever and an elevated white count to 25,000. He was admitted on Rocephin and Zithromax. Patient's oxygen requirement never did really improved and I'm told that he is on 2 L at night but is often noncompliant with his oxygen therapy. Interestingly, one of the [employer]'s that works here, takes care of the patient at home and often arranges his medications and she found the patient without his oxygen therapy when he was brought in for evaluation. Patient's white blood cell count normalized during the hospital stay. He still required 4 L with activity his oxygen saturation on 2 L per nasal cannula did improve to approximately 91% at rest but he definitely desaturates on 2 L per nasal cannula with activity. Therefore, I recommend the patient remain on 2 L at rest at all times and increased to 4 L with activities. The CT scan of the chest shows possible pleural effusion versus a rind, its way too small on CT scan to tap here via thoracentesis. I feel given the complexities of evaluating this, but the patient would be best managed with a first aid trainer in addition for the pleural effusion/rind, I think management of his COPD would be good with a first aid trainer as well. We arranged an appointment in [place] with Dr. Mendosa. No evidence of PE on the CT scan. I should note that the patient had hypotension, but his blood cultures were negative. We gave Pneumovax vaccine and also influenza vaccine during hospital stay. He responded to IV fluids and holding his diuretics but he is now at a point where he can go back on his diuretics. I did confirm that he had been on amiodarone in the past for postoperative atrial fibrillation. There is no reconciliation of being on amiodarone with his medical office specialist on the last visit so I will stop that medication on his list here. He is not sure if he is on it at home or not. He did not show signs of atrial fibrillation during the hospital stay here. The patient does not have any chest pain. He is not having shortness breath he states that his cough is a little more productive he denies any nausea and vomiting and he wants to go home today. Assessment and Plan: 1. As per discharge assessments noted 2. Disposition: Patient is discharged home. 3. Condition on discharge, stable and improved. 4. Diet: regular diet 5. Activities: resume normal activities, stay on oxygen as recommended and we stressed the importance of compliance with oxygen therapy 6. Follow-Up: 1. Primary care physician, Dr. Farah on 04/16/2017 2. Pulmonology in [facility] 04/29/2017 at 7:45 AM 7. Medications at the Time of Discharge: Home Medications Medication Instructions Recorded Confirmed Type Allopurinol 1 tab PO DAILY tab 11/19/14 04/07/18 History Aspirin 81 mg PO DAILY tab 11/19/14 04/07/18 History Carvedilol 1 tab PO BID tab 11/19/14 04/07/18 History Cholecalciferol (Vitamin D3) 1 cap PO PRN PRN cap 11/19/14 04/07/18 History [Vitamin D3] Furosemide 2 tab PO DAILY tab 11/19/14 04/07/18 History Potassium Chloride 1 tab PO DAILY tab 11/19/14 04/07/18 History Spironolactone [Aldactone] 1 tab PO BID tab 11/19/14 04/07/18 History Albuterol [PROVENTIL HFA] 1 - 2 inh BUCCAL .Q4-6H PRN #1 05/02/17 04/07/18 Rx inhaler Fluticasone Nasal [place] 0.05% 2 sprays SIMON BID PRN bottle 05/02/17 04/07/18 Rx [Flonase Nasal [place] 0.05%] Pitavastatin Calcium [Livalo] 2 mg PO DAILY 04/07/18 04/07/18 History Ascorbic Acid [Vitamin C] 1,000 mg PO DAILY tab 04/10/18 Rx Cefuroxime Axetil [Ceftin] 500 mg PO BID #10 tab 04/10/18 Rx I'm extending therapy with Ceftin for 5 additional days, total of 9 days of therapy for this pneumonia. 8. Time, care, counseling and coordination of care for this discharge is greater than 30 minutes. Exam - Vitals Vital Signs: Vital Signs Temperature 97.4 F Temperature Source Temporal Artery Scan Pulse Rate [Apical] 80 Pulse Rate [Pulse Oximeter] 74 Pulse Rate 64 Respiratory Rate 19 Blood Pressure [Left Arm] 113/83 Pulse Ox 91 Oxygen Flow Rate 2 Oxygen Delivery Method Nasal Cannula Height 5 ft 8 in Weight 218 lb 6.4 oz - General General Appearance: No Acute Distress, Cooperative, Obese - Eye Eye Exam: POSITIVE: No Scleral Icterus - ENT ENT Exam: POSITIVE: Mucous Membranes Moist - Neck Neck Exam: JVP is not Raised - Respiratory Respiratory Exam: POSITIVE: Breathing Non Labored, Decreased Breath Sounds (Improved overall with less crackles in the bases) - Cardiovascular Cardiovascular Exam: POSITIVE: RRR, No Murmur, No Clicks, No Gallops, No Rubs, No JVD - GI/Abdominal GI/Abdominal Exam: POSITIVE: Normal Bowel Sounds, Non Tender, Non Distended, Soft - Extremities Extremities Exam: POSITIVE: No Clubbing Present, No Edema Present, No Cyanosis Present (No cyanosis in extremities) - Neurological Neurological Exam: POSITIVE: Alert, Oriented x 3, No Facial Droop, Speech Intact / Clear, Moves All Extremities Equally - Integumentary Integumentary Exam: POSITIVE: Cyanosis (Somewhat blue face and blue lips with activity with no oxygen on but this resolves very quickly if he is compliant with his oxygen therapy) Data Peritnent Studies: Laboratory Results 04/10/18 04/10/18 05:50 05:50 WBC 8.80 RBC 4.74 Hgb 14.2 Hct 44.6 MCV 94.1 H MCH 30.0 MCHC 31.8 L RDW Std Deviation 49.3 RDW Coeff of Brendan 14.7 H Plt Count 195 MPV 10.3 Immature Gran % (Auto) 0.2 Neut % (Auto) 75.5 Lymph % (Auto) 13.6 Gaines % (Auto) 6.7 Eos % (Auto) 3.9 Baso % (Auto) 0.1 Immature Gran # (Auto) 0.02 Neut # (Auto) 6.64 Lymph # (Auto) 1.20 Gaines # (Auto) 0.59 Eos # (Auto) 0.34 Baso # (Auto) 0.01 WBC Morphology Comment Normal morphology Plt Morphology Comment Normal morphology RBC Morph Comment Normal morphology Triglycerides 139 Cholesterol 116 L LDL Cholesterol, Calc 62.200 VLDL Cholesterol 27 HDL Cholesterol 26 L Cholesterol/HDL Ratio 4.46 H 04/07/18 04/08/18 04/08/18 20:09 05:00 05:00 Sodium 138 Potassium 4.3 Chloride 105 Carbon Dioxide 26 Anion Gap 7 BUN 17 Creatinine 0.9 BUN/Creatinine Ratio 18.88 Glucose 102 Calculated Osmolality 287.0 Lactic Acid 1.1 Calcium 8.5 L Total Bilirubin 1.5 H AST 37 ALT 44 Alkaline Phosphatase 68 C-Reactive Protein 5.8 H Total Protein 6.5 Albumin 4.2 Globulin 2.3 L Albumin/Globulin Ratio 1.80 Procedures: [address] [facility]. [facility] [place]THON[place] Nieto [address] PH: DD: [phone] FAX: [phone] ~DIAGNOSTIC IMAGING REPORT~ Patient: TERA CORTEZ : 1940 Sex: M Age: 78 Exam Name: CT CTA Chest Non-Coronary [facility] Exam Date: 04/07/18 Report # : [id number] CPT Code: 53494 EMR/MR #: [id number] Ordering: SUKHDEV GREENBERG Admiting: SEAMUS OLMEDO DO Primary: SAMMY FARAH MD Attending: SEAMUS OLMEDO DO Signed History: ITS.REASON hypoxia; elevated d-dimer Physician Notes: Tech Comments: Exam: CTA CHEST With Contrast Comparison: 04/29/2017 FINDINGS: No evidence of filling defect to suggest pulmonary embolism. Ectatic thoracic aorta. Status post CABG. No pericardial effusion. Trace left pleural fluid versus pleural thickening. Suggestion of a faint gallstone near the neck of nondistended appearing gallbladder. Small hiatal hernia. The central airways are patent. Patchy basilar streaky opacities may represent atelectasis but developing pneumonia, infiltrate not excluded. Left subscapular intramuscular lipoma again noted, incidental. IMPRESSION: No evidence of filling defect to suggest pulmonary embolism. Status post CABG. Trace left pleural fluid versus pleural thickening. Suggestion of a faint gallstone near the neck of nondistended appearing gallbladder. Small hiatal hernia. The central airways are patent. Patchy basilar streaky opacities may represent atelectasis but developing pneumonia, infiltrate not excluded. Dictated By: Bryce Rudolph MD Signed By: 04/07/18 223 Bryce Rudolph MD Patient Problems - Patient Problem List (1) Pneumonia Current Visit: Yes Status: Acute Code(s): J18.9 - Pneumonia, unspecified organism Qualifiers: Pneumonia type: due to unspecified organism Laterality: right Lung location: lower lobe of lung Qualified Code(s): J18.1 - Lobar pneumonia, unspecified organism Category: Medical (2) Coronary artery disease Current Visit: Yes Status: Acute Code(s): I25.10 - Atherosclerotic heart disease of [place] coronary artery without angina pectoris Qualifiers: Coronary Disease-Associated Artery/Lesion type: [place] artery [place] vs. transplanted heart: [place] heart Associated angina: without angina Qualified Code(s): I25.10 - Atherosclerotic heart disease of [place] coronary artery without angina pectoris Category: Medical (3) Hypertension Current Visit: Yes Status: Acute Code(s): I10 - Essential (primary) hypertension Qualifiers: Hypertension type: essential hypertension Qualified Code(s): I10 - Essential (primary) hypertension Category: Medical (4) Congestive heart failure Current Visit: Yes Status: Chronic Code(s): I50.9 - Heart failure, unspecified Category: Medical (5) Pleural effusion Current Visit: Yes Status: Acute Code(s): J90 - Pleural effusion, not elsewhere classified Category: Medical
[2018-04-10] MEDS: cefTRIAXone Inj 2 GM in Sodium Chloride 0.9% 100 ML IV SCH (11:48)
== END 2018-04-10 15:30 | disposition home or self-care (01) | DRG 195 ==
LOC: ER 18:50 → MED/SURG 21:51
PROVIDERS: ADMIT Family Medicine; ATTEND Family Medicine

== ENCOUNTER 2019-03-30 15:45 | Inpatient (IN) ==
[2019-03-30] MEDS ORDERED: ASPIRIN 81 MG (BABY) CHEWABLE TABLET PO ONE (16:13)
[2019-03-30 16:20] LABS: BASOPHILS # (AUTO) 0.03 10*3/UL; BASOPHILS % (AUTO) 0.3 % (0-1); EOSINOPHILS # (AUTO) 0.38 10*3/UL; EOSINOPHILS % (AUTO) 3.7 % (0-8); Hematocrit [HCT] 53.6 % (42.0-52.0); Hemoglobin [HGB] 17.2 g/dL (14.0-18.0); LYMPHOCYTES # (AUTO) 1.56 10*3/uL; MEAN CORPUSCULAR HGB CONC 32.1 g/dL (33-37); MEAN CORPUSCULAR VOLUME 96.2 FL (80-90); MEAN PLATELET VOLUME 9.9 FL (7.4-12.2); MONOCYTES % (AUTO) 9.7 % (5-15); NEUTROPHILS % (AUTO) 70.9 % (50-80); PLATELET MORPHOLOGY COMMENT NORMAL MORPHOLOGY (NORM); RBC MORPHOLOGY COMMENT NORMAL MORPHOLOGY (NORM); RED BLOOD COUNT 5.57 10^6/uL (4.70-6.10); WBC MORPHOLOGY COMMENT NORMAL MORPHOLOGY (NORM)
[2019-03-30 16:27] LABS: BUN/CREATININE RATIO 17.5 (6-20); SERUM ALBUMIN 4.5 g/dL (3.5-4.8)
[2019-03-30] MEDS ORDERED: FUROSEMIDE 10 MG/1 ML - 2 ML VIAL IVP ONE (16:51)
[2019-03-30 16:59] LABS: BILIRUBIN,URINE NEGATIVE (NEG); CLARITY,URINE CLEAR (CLEAR); COLOR,URINE YELLOW (Y); GLUCOSE, URINE (UA) NEGATIVE (NEG); OCCULT BLOOD,URINE NEGATIVE (NEG); PH,URINE 7.5 (5.0-8.5); PROTEIN,URINE NEGATIVE (NEG)
[2019-03-30 17:03] LABS: URINE SAMPLE TYPE CLEAN CATCH URINE
[2019-03-30] MEDS ORDERED: LIDOCAINE W/ SODIUM BICARB 0.5 ML SYR SUBD PRN (20:10)
[2019-03-30] MEDS ORDERED: Magnesium Sulfate 2gm (Premix) 2 GM/50 ML BAG IV ONE (20:10)
[2019-03-30] MEDS ORDERED: PITAVASTATIN CALCIUM 2 MG PO SCH (20:10)
[2019-03-30] MEDS ORDERED: FLUTICASONE PROPIONATE 16 GRAM (120 SPRAYS / BOTTLE) ENOS PRN (20:10)
[2019-03-30] MEDS ORDERED: ACETAMINOPHEN 325 MG TABLET PO PRN (20:10)
[2019-03-30] MEDS ORDERED: POTASSIUM CHLORIDE 20 MEQ TAB PO SCH (20:10)
[2019-03-30] MEDS: ASCORBIC ACID Chewable 500 MG TABLET PO SCH (21:52)
[2019-03-30] MEDS: FUROSEMIDE 10 MG/1 ML - 4 ML IVP SCH (21:52)
[2019-03-30] MEDS: Spironolactone Tab 25 MG TAB PO SCH (21:53)
[2019-03-30] MEDS: CARVEDILOL 3.125 MG TABLET PO SCH (21:54)
[2019-03-30] MEDS: ASPIRIN 81 MG (BABY) CHEWABLE TABLET PO SCH (21:55)
[2019-03-30] MEDS: ENOXAPARIN SODIUM 40 MG/0.4 ML SYRINGE SUBCUT SCH (21:55)
[2019-03-31 04:55] LABS: BASOPHILS # (AUTO) 0.02 10*3/UL; BASOPHILS % (AUTO) 0.2 % (0-1); EOSINOPHILS # (AUTO) 0.48 10*3/UL; EOSINOPHILS % (AUTO) 5.4 % (0-8); Hemoglobin [HGB] 15.6 g/dL (14.0-18.0); LYMPHOCYTES # (AUTO) 1.07 10*3/uL; MEAN CORPUSCULAR HGB CONC 32.5 g/dL (33-37); MEAN CORPUSCULAR VOLUME 96.2 FL (80-90); MONOCYTES # (AUTO) 0.83 10*3/UL (0.3-0.8); MONOCYTES % (AUTO) 9.4 % (5-15); NEUTROPHILS # (AUTO) 6.46 10*3/UL; NEUTROPHILS % (AUTO) 72.9 % (50-80); RED BLOOD COUNT 4.99 10^6/uL (4.70-6.10)
[2019-03-31 04:58] LABS: PLATELET MORPHOLOGY COMMENT NORMAL MORPHOLOGY (NORM); RBC MORPHOLOGY COMMENT NORMAL MORPHOLOGY (NORM); WBC MORPHOLOGY COMMENT NORMAL MORPHOLOGY (NORM)
[2019-03-31 05:05] LABS: BLOOD UREA NITROGEN 17 mg/dL (7-22); SERUM ALBUMIN 3.5 g/dL (3.5-4.8)
[2019-03-31] MEDS: FUROSEMIDE 10 MG/1 ML - 4 ML IVP SCH ×2 (08:45→19:35)
[2019-03-31] MEDS: ASCORBIC ACID Chewable 500 MG TABLET PO SCH (08:46)
[2019-03-31] MEDS: POTASSIUM CHLORIDE 20 MEQ TAB PO SCH ×2 (08:46→21:01)
[2019-03-31] MEDS: CARVEDILOL 3.125 MG TABLET PO SCH ×2 (08:46→21:07)
[2019-03-31] MEDS: Spironolactone Tab 25 MG TAB PO SCH ×2 (08:46→21:06)
[2019-03-31] MEDS: ENOXAPARIN SODIUM 40 MG/0.4 ML SYRINGE SUBCUT SCH (08:46)
[2019-03-31] MEDS ORDERED: Magnesium Sulfate 2gm (Premix) 2 GM/50 ML BAG IV ONE (10:12)
[2019-03-31] MEDS: ASPIRIN 81 MG (BABY) CHEWABLE TABLET PO SCH (11:21)
[2019-03-31] MEDS ORDERED: ATORVASTATIN 10 MG TABLET PO SCH (21:00)
[2019-04-01 05:02] LABS: BLOOD UREA NITROGEN 15 mg/dL (7-22); BUN/CREATININE RATIO 18.75 (6-20)
[2019-04-01] MEDS: FUROSEMIDE 10 MG/1 ML - 4 ML IVP SCH (08:20)
[2019-04-01] MEDS: Spironolactone Tab 25 MG TAB PO SCH (08:22)
[2019-04-01] MEDS: ASPIRIN 81 MG (BABY) CHEWABLE TABLET PO SCH (08:22)
[2019-04-01] MEDS: CARVEDILOL 3.125 MG TABLET PO SCH (08:22)
[2019-04-01] MEDS: ASCORBIC ACID Chewable 500 MG TABLET PO SCH (08:22)
[2019-04-01] MEDS: POTASSIUM CHLORIDE 20 MEQ TAB PO SCH (08:22)
[2019-04-01] MEDS: ENOXAPARIN SODIUM 40 MG/0.4 ML SYRINGE SUBCUT SCH (08:23)
[2019-04-01] MEDS ORDERED: LISINOPRIL 5 MG TABLET PO ONE (12:31)
[2019-04-01 15:32] VITALS: BP 111/83; RESP 14; TEMP 98.2; O2SAT 91
[2019-04-02] MEDS ORDERED: LISINOPRIL 5 MG TABLET PO SCH (09:00)
== END 2019-04-01 15:49 | disposition short-term general hospital (02) | DRG 293 ==
LOC: ER 15:45 → MED/SURG 19:41
PROVIDERS: ADMIT Internal Medicine; ATTEND Internal Medicine